=== PATIENT | female | born 1945 | race Caucasian/White ===

== ENCOUNTER → 2016-12-22 | Outpatient (CLI) | payer MEDICARE ==
[~2016-12-22] MED LIST: ALPR0.254 PO; ASPI-630 PO; BYSTOLIC10 MG PO; CHOL2000 PO; CITA40TA5 PO; CRESTOR5 MG PO; ESOM40CA PO; LISI-334 PO; NIFE30TA26 PO; OMEP40CA5 PO; TEMA15CA PO; levothyroxine PO
--- NOTE | 2016-12-22 14:19 | RAD ---
INDICATION:PELVIC PAIN COMPARISON: None. FINDINGS: Focused ultrasound images were obtained of the uterus and adnexa with transabdominal technique. The patient declined transvaginal examination. The bladder is full at the time of exam. The uterus is faintly visualized measuring approximately 57 x 15 x 22 mm but poor evaluation. The ovaries are not well seen. IMPRESSION: Poor visualization of the pelvic structures using transabdominal technique and the patient declined transvaginal examination therefore this is essentially a nondiagnostic exam.
[2016-12-30 09:56] VITALS: BP 114/59
== END | disposition home or self-care (01) ==
LOC: US 08:00
PROVIDERS: ATTEND Nurse Practitioner Family
DX: R10.2 Pelvic and perineal pain (principal)
CPT/HCPCS: 76856

== ENCOUNTER → 2016-12-30 | Day surgery (SDC) | payer MEDICARE ==
[~2016-12-30] MED LIST changes: +HYDROmorphone 2 MG/ML VIAL IV PRN; +IV RINGERS,LACTATED 1000ML 1,000 ML IV SCH; +LIDOCAINE 1% 1 ML SYRINGE. ID PRN; +LIDOCAINE 2% PF Vial for OR 5 ML VIAL. ONE; +MORPHINE SULFATE 2 MG/ML DISP.SYRIN. IV PRN; +ONDANSETRON PF 4 MG/2 ML VIAL. IV PRN; +PROCHLORPERAZINE 10 MG/2 ML VIAL. IV PRN; +PROPOFOL 40 ML IV ONE; +fentaNYL PF VIAL 100 MCG/2 ML VIAL IV PRN
[2016-12-30 09:56] VITALS: BP 114/59
--- NOTE | 2016-12-30 12:50 | PREOP HP ---
DATE OF SERVICE: 12/30/2016 REQUESTING PHYSICIAN: Brandi Hinojosa APRN PRIMARY CARE PHYSICIAN: Brandi Hinojosa APRN REASON FOR PROCEDURE: Colorectal cancer screening. HISTORY OF PRESENT ILLNESS: This is a 71-year-old female who presents today for colorectal cancer screening. She has a daily bowel movement. She has had a prior history of colon polyps and a family history of colorectal cancer in her mother. She has been experiencing left lower quadrant abdominal tenderness. She did have an abdominal sonogram that was unrevealing. She is scheduled for a pelvic sonogram. ALLERGIES: No known drug allergies. MEDICATIONS: 1. Bystolic. 2. Citalopram. 3. Omeprazole. 4. Nifedipine. 5. Baby aspirin. 6. Crestor. 7. Levothyroxine. 8. Alprazolam. PAST MEDICAL HISTORY: 1. Colon polyps. 2. Reflux. 3. High blood pressure. 4. High cholesterol. 5. Eye surgery. 6. D and C. 7. Tonsillectomy. 8. Cataracts. 9. Cysts surgery. 10. . 11. Breast biopsy. FAMILY MEDICAL HISTORY: Significant for colorectal cancer in her mother, father with prostate and bone cancer, uncle with salivary gland cancer, three uncles with lung cancer. SOCIAL HISTORY: She drinks seven or less alcoholic beverages a week. She has a history of smoking less than 1 pack of cigarettes a day and she denies any IV drug abuse. REVIEW OF SYSTEMS: A 13-point review of systems was done. It is positive for leg cramps, swelling of the hands and feet, bleeding gums, easy bruising and joint stiffness, but is otherwise negative. PHYSICAL EXAMINATION: VITAL SIGNS: She is afebrile and her vital signs are stable. GENERAL: She is a well-developed, well-nourished female, in no apparent distress. HEENT: Oropharynx is clear. CARDIOVASCULAR: S1, S2. LUNGS: Clear. ABDOMEN: Normoactive bowel sounds, soft, nontender, nondistended. EXTREMITIES: No edema. NEUROLOGIC: Awake, alert and oriented x 3. ASSESSMENT AND PLAN: 1. Colorectal cancer screening: She has a history of polyps and a family history of colorectal cancer. We will pursue with colonoscopy. The risks and benefits including bleeding, perforation and sedation were explained and she has agreed to proceed. 2. Left lower quadrant abdominal tenderness: She is scheduled for a pelvic sonogram today. We will evaluate at this time with colonoscopy. Thank you for allowing me to participate in the care of this patient. RICH ROACH MD DR: LORRAINE/sommer JOB#: [id number] / [id number] BRANDI Houston APRN
--- NOTE | 2016-12-31 17:01 | PATHOLOGY ---
PATHOLOGY REPORT * * * * * * * * FINAL DIAGNOSIS: Colon biopsy, sigmoid colon: - Congestion and mild acute and chronic inflammation. COMMENT: Sections of the sigmoid colon biopsy reveal a segment of colonic mucosa showing congestion and mild acute and chronic inflammation. The colonic glands appear viable and are regularly distributed and show no crypt architectural distortion. There is no evidence of acute cryptitis. There are no granulomas. The histologic findings are non-specific and may be related to bowel prep. (JPM:mgr; 12/31/2016) REPORT ELECTRONICALLY SIGNED BY: Erik Nielson M.D. DATE/TIME: 12/31/2016 17:00 * * * * * * * * GROSS PATHOLOGY: Received in formalin labeled "Keturah White, sigmoid biopsies," is a segment of mcgowan soft tissue measuring 0.3 cm in maximum dimension. The specimen is submitted entirely in cassette A1. (JPM; 12/30/16) INITIAL CPT CODE(S): A; 75065 Professional services performed by [facility] [place] [address] Technical services performed by [facility] at [address] [place] [address] [address], [place] [address]. SPECIMEN(S) RECEIVED: A.Sigmoid biopsies CLINICAL HISTORY: History of polyps, screening PATIENT: KETURAH WHITE /AGE: 10 1945 (Age: 71) PATIENT #: [id number] ALT CASE #: SPECIMEN COLLECTION DATE: 12/30/2016 SPECIMEN RECEIVED DATE: 12/30/2016 [facility] - [address] [place] [address] - PHONE: [phone] * * * END OF REPORT * * *
== END | disposition home or self-care (01) ==
LOC: ENDOS 07:46
PROVIDERS: ATTEND Internal Medicine Gastroenterology
DX: Z08 Encounter for follow-up examination after completed treatment for malignant neoplasm (principal); Z80.0 Family history of malignant neoplasm of digestive organs; K64.0 First degree hemorrhoids; K63.89 Other specified diseases of intestine; E78.00 Pure hypercholesterolemia, unspecified; I10 Essential (primary) hypertension; K21.9 Gastro-esophageal reflux disease without esophagitis; E03.9 Hypothyroidism, unspecified; Z86.39 Personal history of other endocrine, nutritional and metabolic disease; F41.9 Anxiety disorder, unspecified; F32.9 Major depressive disorder, single episode, unspecified; Z87.39 Personal history of other diseases of the musculoskeletal system and connective tissue; Z72.89 Other problems related to lifestyle
CPT/HCPCS: 45380; 88305; J2001; J2704

== ENCOUNTER → 2016-12-31 | Outpatient (CLI) | payer MEDICARE ==
[2016-12-30 09:56] VITALS: BP 114/59
[~2016-12-31] MED LIST changes: -HYDROmorphone 2 MG/ML VIAL IV PRN; -IV RINGERS,LACTATED 1000ML 1,000 ML IV SCH; -LIDOCAINE 1% 1 ML SYRINGE. ID PRN; -LIDOCAINE 2% PF Vial for OR 5 ML VIAL. ONE; -MORPHINE SULFATE 2 MG/ML DISP.SYRIN. IV PRN; -ONDANSETRON PF 4 MG/2 ML VIAL. IV PRN; -PROCHLORPERAZINE 10 MG/2 ML VIAL. IV PRN; -PROPOFOL 40 ML IV ONE; -fentaNYL PF VIAL 100 MCG/2 ML VIAL IV PRN
--- NOTE | 2016-12-31 15:10 | RAD ---
Transvaginal ultrasound, 12/31/2016: History: Pelvic pain Transvaginal scans were obtained. Note is made that a transabdominal study was performed on 12/22/2016. At that time the patient refused transvaginal scanning. Today's images demonstrate a small uterus measuring 3.7 x 2.8 x 1.9 cm. A small nabothian cyst is seen. The central uterine echo complex is not clearly defined, however, it does not appear to be grossly thickened. The ovaries were not visualized. No adnexal mass is seen. No free fluid is evident in the pelvis. IMPRESSION: Today's limited exam reveals no significant abnormality.
== END | disposition home or self-care (01) ==
LOC: US 14:15
PROVIDERS: ATTEND Nurse Practitioner Family
DX: R10.2 Pelvic and perineal pain (principal)
CPT/HCPCS: 76830

== ENCOUNTER → 2017-01-14 | Outpatient (CLI) | payer MEDICARE ==
[2016-12-30 09:56] VITALS: BP 114/59
--- NOTE | 2017-01-14 12:04 | KCIC ---
MR of the left shoulder Indication: Pain after an injury. Fell 3 days ago. Technique: Standard multiplanar sequences are obtained. Findings: Mild to moderate motion degradation Acromioclavicular joint: Slightly degenerative. No significant undersurface mass effect. Rotator cuff: Mild tendinosis signal. Partial-thickness undersurface tearing of the anterior supraspinatus tendon footprint up to 80 percent deep and 1 cm AP. No through and through full-thickness rupture. Trace fluid in the subdeltoid bursa. Glenohumeral cartilage: No acute defect or advanced DJD. Fluid: Trace joint effusion. Labrum: No apparent tear. Anterosuperior sublabral foramen, normal variant. Incidentally noted thickened cordlike middle glenohumeral ligament. Biceps tendon: Intact Bones: Small nondisplaced fracture at the greater tuberosity is suspected, at its anterior aspect. Soft tissue: Minimal strain or contusion of the lateral deltoid muscle. Impression: 1. Small undersurface tear of the anterior supraspinatus tendon footprint. No full-thickness rotator cuff 2. Suspect small nondisplaced posttraumatic fracture of the anterior greater tuberosity of the proximal humerus. Electronically signed by: Darvin Jones MD (01/14/2017 12:01 PM) [facility]
== END | disposition home or self-care (01) ==
LOC: KCIC MRI 10:36
PROVIDERS: ATTEND Family Medicine
DX: S49.92XD Unspecified injury of left shoulder and upper arm, subsequent encounter (principal); M75.102 Unspecified rotator cuff tear or rupture of left shoulder, not specified as traumatic; X58.XXXD Exposure to other specified factors, subsequent encounter
CPT/HCPCS: 73221

== ENCOUNTER → 2017-01-18 | Outpatient (CLI) | payer OTHER, MEDICARE ==
[2016-12-30 09:56] VITALS: BP 114/59
[~2017-01-18] MED LIST changes: +BUPIVACAINE MPF 0.25% 10 ML VIAL. ONE; +IOHEXOL 180 MG/ML 10 ML VIAL. ONE; +methylPREDNISolone ACETATE 80 MG/ML VIAL. ONE
--- NOTE | 2017-01-18 11:14 | PAIN ---
DATE OF SERVICE: 01/18/2017 PROGRESS NOTE FOR PAIN CLINIC DIAGNOSES: 1. Lumbar radiculopathy. 2. Left shoulder joint pain. HISTORY OF PRESENT ILLNESS: The patient is a 71-year-old female who returns for followup, last seen in June 2015. The patient did very well after lumbar epidural steroid injection; however, returns today reporting that she had fallen at work about 1 week ago landing on to her left shoulder and bilateral elbows. The patient reports she is having significant pain since the fall in to the left shoulder, difficult to abduct the arm, difficulty with activities of daily living, getting dressed, putting her arm through the shirt sleeve, etc. The patient reports her pain as at 8 on a scale of 10 at its worst, it is a 7 on average, is a least of 5 on a scale of 10. The patient reports aching and dull, shooting with radiating pain in to the anterior arm as well in the biceps. The patient did have an MRI scan of the left shoulder showing small undersurface tear of the anterior supraspinatus tendon. No full thickness rotator cuff tear and also suspecting small nondisplaced posttraumatic fracture of the anterior greater tuberosity of the proximal humerus. The patient reports significant pain with any motion of the arm, even reaching forwards, backwards inhibiting her daily activities significantly. The patient reports no loss of motor function, but significant pain, although she is sleeping well at night. She has to lie flat on her back and not lie on her left side. PHYSICAL EXAMINATION: VITAL SIGNS: The patient's blood pressure is 133/71, pulse 56, respirations 18, temperature 97.7 degrees Fahrenheit. Height is 5 feet 5 inches, weighs 193 pounds. GENERAL: The patient is awake, alert, oriented, appropriate, has a very pleasant demeanor. HEENT: Head shows normocephalic, atraumatic. Extraocular movements are intact, symmetrical. The patient wears eye glasses. Oral cavity has mucous membranes moist and pink. Dentition is intact. NECK: Shows anterior throat supple without palpable lymphadenopathy noted. Swallow reflex is symmetrical. CHEST: Shows normal on inspection. Breath sounds are clear to auscultation bilaterally. HEART: Shows S1 and S2 clear. ABDOMEN: Soft, nontender, nondistended. No palpable organomegaly. There is no rebound or guarding demonstrated. BACK: Shows spine grossly in the midline. Normal-appearing cervical lordotic curvature, thoracic kyphotic curvature as well as lumbar lordotic curvature. EXTREMITIES: The patient's upper extremities show deep tendon reflexes 2+ in the biceps and triceps tendons. 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 It is only 2-3 with significant pain reported with biceps flexion on the left side and triceps flexion is slightly less painful, but difficult to do with the arm. The patient shows significant tenderness with even passive motion of abduction on the left side greater than about 30 degrees to 45 degrees with significant pain in the anterior aspect of the shoulder and arm. Right side shows full rotational motion without difficulty. Peripheral pulses are 2+ in radial distribution. No peripheral edema is noted. Options were discussed with the patient. The patient's old chart was reviewed as her current medication regimen and updated. Current review of systems updated today as well. We will proceed with a left shoulder joint intraarticular injection with fluoroscopic guidance. Risks were discussed including, but not limited to bleeding, infection, possibility of epidural hematoma, subsequent neurologic compromise, dural punctures, headaches, spinal cord and/or nerve damage, side effects of steroid medication and poor results regarding pain control. The patient understands and wishes to proceed. The patient will return to the clinic in approximately 2 weeks for followup. She was counseled as to return appointment, activity level and side effects to be aware of. DIAGNOSIS: Left shoulder joint pain. PROCEDURES: Left intraarticular shoulder joint injection with C-arm fluoroscopic guidance under sterile prep and drape using local anesthetic. Medications injected is a total of 2 mL of 0.25% bupivacaine plus 80 mg Depo-Medrol and 2 mL of Isovue for contrast. CONDITION AT DISCHARGE: Stable. The patient tolerated the procedure well, had no complications. ELSIE COTTON MD DR: JOSE/sommer JOB#: [id number] / [id number]
== END | disposition home or self-care (01) ==
LOC: PNCL 08:53
PROVIDERS: ATTEND Anesthesiology
DX: M25.512 Pain in left shoulder (principal); M54.16 Radiculopathy, lumbar region; E78.00 Pure hypercholesterolemia, unspecified; I10 Essential (primary) hypertension; M19.90 Unspecified osteoarthritis, unspecified site; E03.9 Hypothyroidism, unspecified; F41.9 Anxiety disorder, unspecified; F32.9 Major depressive disorder, single episode, unspecified; Z72.89 Other problems related to lifestyle; Z87.39 Personal history of other diseases of the musculoskeletal system and connective tissue; Z88.6 Allergy status to analgesic agent
CPT/HCPCS: 20610; J1040; J3490

== ENCOUNTER → 2017-04-18 | Outpatient (CLI) | payer MEDICARE ==
[2016-12-30 09:56] VITALS: BP 114/59
[~2017-04-18] MED LIST changes: -BUPIVACAINE MPF 0.25% 10 ML VIAL. ONE; -IOHEXOL 180 MG/ML 10 ML VIAL. ONE; -methylPREDNISolone ACETATE 80 MG/ML VIAL. ONE
--- NOTE | 2017-04-18 15:15 | RAD ---
DATE: 04/18/2017 EXAM: DIGITAL SCREEN BILAT W/CAD HISTORY: Routine screening COMPARISON: 04/15/2016 This study was interpreted with the benefit of Computerized Aided Detection (CAD). The breast parenchyma is primarily fatty replaced. Breast parenchyma level density A. FINDINGS: No new or enlarging breast densities are seen. An old breast biopsy marker is again noted inferiorly in the right breast. Scattered benign type calcifications are present. No suspicious microcalcifications have developed. IMPRESSION: Stable mammograms without evidence of malignancy. BI-RADS CATEGORY: 2 BENIGN FINDING(S) RECOMMENDED FOLLOW-UP: 12M 12 MONTH FOLLOW-UP PQRS compliance statement: Patient information was entered into a reminder system with a target due date for the next mammogram. Mammography is a sensitive method for finding small breast cancers, but it does not detect them all and is not a substitute for careful clinical examination. A negative mammogram does not negate a clinically suspicious finding and should not result in delay in biopsying a clinically suspicious abnormality. "Our facility is accredited by the [employer] Mammography Program."
== END | disposition home or self-care (01) ==
LOC: MAMMO 14:44
PROVIDERS: ATTEND Nurse Practitioner Family
DX: Z12.31 Encounter for screening mammogram for malignant neoplasm of breast (principal)
CPT/HCPCS: G0202; 77067

== ENCOUNTER → 2017-06-21 | Outpatient (CLI) | payer MEDICARE | END | disposition home or self-care (01) | LOC: MRI 09:12 | DX: S83.241A Other tear of medial meniscus, current injury, right knee, initial encounter (principal); S83.281A Other tear of lateral meniscus, current injury, right knee, initial encounter; M25.461 Effusion, right knee; M17.11 Unilateral primary osteoarthritis, right knee; M22.41 Chondromalacia patellae, right knee; M71.21 Synovial cyst of popliteal space [Baker], right knee; X58.XXXA Exposure to other specified factors, initial encounter; Y93.89 Activity, other specified; Y92.89 Other specified places as the place of occurrence of the external cause; Y99.8 Other external cause status | CPT/HCPCS: 73721 ==

== ENCOUNTER 2017-07-15 10:30 | Day surgery (SDC) | payer MEDICARE ==
[~2017-07-15 10:30] MED LIST changes: -ALPR0.254 PO; -ASPI-630 PO; -BYSTOLIC10 MG PO; -CHOL2000 PO; -CITA40TA5 PO; -CRESTOR5 MG PO; -ESOM40CA PO; +HYDROmorphone 2 MG/ML VIAL IV; +LIDOCAINE 1% PF 2 ML VIAL. ID; -LISI-334 PO; +MORPHINE SULFATE 2 MG/ML DISP.SYRIN. IV; -NIFE30TA26 PO; -OMEP40CA5 PO; +ONDANSETRON PF 4 MG/2 ML VIAL. IV; +PROCHLORPERAZINE 10 MG/2 ML VIAL. IV; -TEMA15CA PO; +fentaNYL PF VIAL 100 MCG/2 ML VIAL IV; -levothyroxine PO
[2017-07-15] MEDS: IV RINGERS,LACTATED 1000ML 1,000 ML IV ×2 (11:10)
[2017-07-15] MEDS ORDERED: fentaNYL PF VIAL 100 MCG/2 ML VIAL ×2 (11:32)
[2017-07-15] MEDS ORDERED: ePHEDrine PF IN SALINE 50 MG/5 ML DISP.SYRIN IV (12:29)
[2017-07-15] MEDS ORDERED: PROPOFOL 20 ML IV ×4 (12:40→12:49)
[2017-07-15] MEDS ORDERED: ONDANSETRON PF 4 MG/2 ML VIAL. ×2 (12:40)
[2017-07-15] MEDS ORDERED: LIDOCAINE 2% PF Vial for OR 5 ML VIAL. ×2 (12:40)
[2017-07-15] MEDS: BUPIVACAINE MPF 0.5% 30 ML VIAL. ×2 (12:47)
[2017-07-15] MEDS ORDERED: DEXAMETHASONE SOD PHOS 20 MG/5 ML VIAL. ×2 (12:49)
[2017-07-15] MEDS: fentaNYL PF VIAL 100 MCG/2 ML VIAL IV ×4 (13:57→14:10)
[2017-07-15] MEDS: HYDROcodone/APAP 7.5/325MG 1 TAB TABLET PO ×2 (14:37)
== END 2017-07-15 15:15 | disposition home or self-care (01) ==
LOC: SURG 10:30
DX: S83.241A Other tear of medial meniscus, current injury, right knee, initial encounter (principal); S83.281A Other tear of lateral meniscus, current injury, right knee, initial encounter; X58.XXXA Exposure to other specified factors, initial encounter; Y93.89 Activity, other specified; Y92.89 Other specified places as the place of occurrence of the external cause; Y99.8 Other external cause status; E78.00 Pure hypercholesterolemia, unspecified; I10 Essential (primary) hypertension; E66.9 Obesity, unspecified; Z68.30 Body mass index [BMI] 30.0-30.9, adult; E03.9 Hypothyroidism, unspecified; F41.9 Anxiety disorder, unspecified; F32.9 Major depressive disorder, single episode, unspecified; Z72.89 Other problems related to lifestyle; Z98.41 Cataract extraction status, right eye; Z98.42 Cataract extraction status, left eye; Z87.39 Personal history of other diseases of the musculoskeletal system and connective tissue
CPT/HCPCS: 20680; J0690; J1100; J2405; J2704; J3010; J3490

== ENCOUNTER → 2017-12-19 | Outpatient (CLI) | payer MEDICARE | END | disposition home or self-care (01) | LOC: ECHO 08:42 | DX: I08.8 Other rheumatic multiple valve diseases (principal); I27.20 Pulmonary hypertension, unspecified; I10 Essential (primary) hypertension; E78.00 Pure hypercholesterolemia, unspecified; E78.5 Hyperlipidemia, unspecified; E03.9 Hypothyroidism, unspecified; E66.9 Obesity, unspecified | CPT/HCPCS: 93306 ==

== ENCOUNTER → 2018-01-16 | Outpatient (CLI) | payer MEDICARE ==
[2017-07-15 14:46] VITALS: BP 143/56
[~2018-01-16] MED LIST changes: +ALPR0.254 PO; +ASPI-630 PO; +BYSTOLIC10 MG PO; +CHOL2000 PO; +CITA20TA6 PO; +CITA40TA5 PO; +CRESTOR5 MG PO; +ESOM40CA PO; +HYDR-2762 PO; +HYDR-965 PO; -HYDROmorphone 2 MG/ML VIAL IV; -LIDOCAINE 1% PF 2 ML VIAL. ID; +LISI-334 PO; +MAGN400C PO; -MORPHINE SULFATE 2 MG/ML DISP.SYRIN. IV; +NIFE30TA2 PO; +NIFE30TA26 PO; +OMEP40CA5 PO; -ONDANSETRON PF 4 MG/2 ML VIAL. IV; +PANT20TA2 PO; +POTA20TA82 PO; -PROCHLORPERAZINE 10 MG/2 ML VIAL. IV; +TEMA15CA PO; +WARF2TAB PO; +[UNRECOGNIZED DRUG - OTHER]; -fentaNYL PF VIAL 100 MCG/2 ML VIAL IV; +levothyroxine PO
[2018-01-16 11:22] LABS: BASO # 0.1 x10^3/uL (0.0-0.2); BASO % 1 % (0-3); EOS # 0.2 x10^3/uL (0.0-0.7); EOS % 3 % (0-3); HEMATOCRIT 37.5 % (36.0-47.0); HEMOGLOBIN 12.6 g/dL (12.0-15.5); LYMPH # 2.9 x10^3/uL (1.0-4.8); LYMPH % 42 % (24-48); MEAN CORPUSCULAR HEMOGLOBIN 31 pg (25-35); MEAN CORPUSCULAR HGB CONC 34 g/dL (31-37); MEAN CORPUSCULAR VOLUME 91 fL (79-100); MONO # 0.6 x10^3/uL (0.0-1.1); MONO % 8 % (0-9); NEUT # 3.2 x10^3uL (1.8-7.7); NEUT % 46 % (31-73); PLATELET COUNT 318 x10^3/uL (140-400); RED BLOOD COUNT 4.12 x10^6/uL (3.50-5.40); RED CELL DISTRIBUTION WIDTH 12.8 % (11.5-14.5)
--- NOTE | 2018-01-16 11:22 | EKG ---
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
[2018-01-16 11:29] LABS: PROTHROMBIN TIME PATIENT 12.4 SEC (11.7-14.0)
[2018-01-16 11:34] LABS: ALBUMIN 3.9 g/dL (3.4-5.0); CALCIUM 9.7 mg/dL (8.5-10.1); CREATININE 1.3 mg/dL (0.6-1.0); GFR 40.4; POTASSIUM 4.1 mmol/L (3.5-5.1)
[2018-01-16 12:50] LABS: BILIRUBIN,URINE SMALL (NEG); CLARITY,URINE CLEAR; COLOR,URINE YELLOW; NITRITE,URINE NEGATIVE (NEG); PH,URINE 5.5; PROTEIN,URINE NEGATIVE (NEG-TRACE); UROBILINOGEN,URINE 0.2 mg/dL (0.2 mg/dL)
[2018-01-16 13:27] LABS: BACTERIA,URINE 0 /HPF (0-FEW); HYALINE CASTS, URINE OCCASIONAL /HPF; RBC,URINE 0 /HPF (0-2); SQUAMOUS EPITHELIAL CELL,UR FEW /LPF
--- NOTE | 2018-01-16 16:06 | RAD ---
EXAM: PA and lateral views of the chest DATE: 01/16/2018 1:06 PM INDICATION: PRE OP FOR KNEE REPLACEMENT 01/24/18 COMPARISON: No Prior FINDINGS: The heart is not enlarged. Mediastinal and hilar contours are normal. No focal parenchymal airspace opacity. No pleural effusion or pneumothorax. Mild eventration of the right hemidiaphragm. IMPRESSION: 1. No radiographic evidence for acute cardiopulmonary process. Electronically signed by: Salo Zepeda MD (01/16/2018 4:02 PM) [facility]
== END | disposition home or self-care (01) ==
LOC: LAB 10:35
PROVIDERS: ATTEND Orthopaedic Surgery
DX: Z01.818 Encounter for other preprocedural examination (principal); M17.11 Unilateral primary osteoarthritis, right knee; I10 Essential (primary) hypertension; E03.9 Hypothyroidism, unspecified; E78.00 Pure hypercholesterolemia, unspecified; E78.5 Hyperlipidemia, unspecified; Z86.39 Personal history of other endocrine, nutritional and metabolic disease; Z87.39 Personal history of other diseases of the musculoskeletal system and connective tissue; Z68.30 Body mass index [BMI] 30.0-30.9, adult; Z88.6 Allergy status to analgesic agent
CPT/HCPCS: 36415; 71046; 80048; 81001; 82040; 85025; 85610; 85651; 85730; 87086; 87641; 93005

== ENCOUNTER 2018-01-24 10:57 | Inpatient (IN) | payer MEDICARE ==
[~2018-01-24] VITALS: Ht 165.1 cm; Wt 85.3 kg
[~2018-01-24 10:57] MED LIST changes: +DEXAMETHASONE SOD PHOS 20 MG/5 ML VIAL. ONE; -HYDR-2762 PO; +HYDROcodone/APAP 7.5/325MG 1 TAB TABLET PO PRN; +HYDROmorphone 2 MG/ML VIAL IV PRN; +IV RINGERS,LACTATED 1000ML 1,000 ML IV SCH; +LIDOCAINE 1% PF 2 ML VIAL. ID PRN; +LIDOCAINE 2% PF Vial for OR 5 ML VIAL. ONE; +MORPHINE SULFATE 2 MG/ML VIAL. IV PRN; +MORPHINE SULFATE 5 MG, KETOROLAC 30MG VIAL 30 MG, ROPIVacaine 0.5% PF 60 ML, EPINEPHrin... INT ART ONE; +ONDANSETRON PF 4 MG/2 ML VIAL. IV PRN; +ONDANSETRON PF 4 MG/2 ML VIAL. ONE; +PROCHLORPERAZINE 10 MG/2 ML VIAL. IV PRN; +PROPOFOL 20 ML IV ONE; +ROCURONIUM 50 MG/5 ML VIAL. ONE; +TRANEXAMIC ACID 1,000 MG in IV NS 50ML -- 1ST BAG INJ ONE; +TRANEXAMIC ACID 1,000 MG in IV NS 50ML -- 2ND BAG INJ ONE; -WARF2TAB PO; +fentaNYL PF VIAL 100 MCG/2 ML VIAL IV PRN; +fentaNYL PF VIAL 100 MCG/2 ML VIAL ONE
[2018-01-24] MEDS ORDERED: CELECOXIB 100 MG CAPSULE. ONE (11:39)
[2018-01-24] MEDS ORDERED: LIDOCAINE 1% PF 30 ML VIAL. ONE (11:40)
[2018-01-24 12:03] LABS: PROTHROMBIN TIME PATIENT 12.5 SEC (11.7-14.0)
[2018-01-24] MEDS ORDERED: MIDAZOLAM HCL/PF 2 MG/2 ML VIAL. ONE (12:14)
[2018-01-24] MEDS ORDERED: FAMOTIDINE 20 MG/2 ML VIAL ONE (12:14)
[2018-01-24] MEDS ORDERED: fentaNYL PF VIAL 100 MCG/2 ML VIAL ONE ×2 (12:16→14:42)
[2018-01-24] MEDS ORDERED: ePHEDrine PF IN SALINE 50 MG/5 ML DISP.SYRIN IV ONE (12:18)
[2018-01-24] MEDS ORDERED: GLYCOPYRROLATE 1 MG/5 ML VIAL. ONE (13:04)
[2018-01-24] MEDS ORDERED: NEOSTIGMINE METHYLSULFATE 5 MG/5 ML SYRINGE. ONE (13:21)
[2018-01-24] MEDS ORDERED: fentaNYL PF VIAL 100 MCG/2 ML VIAL IV PRN ×2 (14:45)
[2018-01-24] MEDS ORDERED: traMADol 50 MG TABLET PO PRN ×2 (14:45)
[2018-01-24] MEDS ORDERED: HYDROcodone/APAP 10/325 1 TAB TABLET PO PRN (14:45)
[2018-01-24] MEDS ORDERED: ZOLPIDEM 5 MG TABLET. PO PRN (14:45)
[2018-01-24] MEDS ORDERED: oxyCODONE/APAP 5/325 1 TAB TABLET PO PRN (14:45)
[2018-01-24] MEDS ORDERED: ALPRAZolam 0.25 MG TABLET PO PRN (14:45)
[2018-01-24] MEDS ORDERED: diphenhydrAMINE 50 MG/ML VIAL IV PRN (14:45)
[2018-01-24] MEDS ORDERED: ACETAMINOPHEN 325 MG TABLET. PO PRN (14:45)
[2018-01-24] MEDS ORDERED: oxyCODONE/APAP 7.5/325 1 TAB TABLET PO PRN (14:45)
[2018-01-24] MEDS ORDERED: DEXTROSE 50% 25 GM / 50ML DISP.SYRIN. IV PRN (14:45)
[2018-01-24] MEDS ORDERED: PROCHLORPERAZINE 10 MG/2 ML VIAL. IV PRN (14:45)
[2018-01-24] MEDS ORDERED: MORPHINE SULFATE 4 MG/ML VIAL. IV PRN (14:45)
[2018-01-24] MEDS ORDERED: 0.9 % SODIUM CHLORIDE 10 ML DISP.SYRIN. IV PRN (14:45)
[2018-01-24] MEDS ORDERED: MORPHINE SULFATE 2 MG/ML VIAL. IV PRN (14:45)
[2018-01-24] MEDS: fentaNYL PF VIAL 100 MCG/2 ML VIAL IV PRN ×2 (15:07→15:43)
--- NOTE | 2018-01-24 15:11 | PDOC4 ---
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 Estimated blood loss: 200 mL Complications: None Operative indications: Keturah underwent previous knee arthroscopy and subsequent injections which provided her inadequate relief from her ongoing knee pain and instability. Likewise bracing and activity modification were inadequate to get her back to acceptable levels of symptoms and pain. We had gone over risks benefits postoperative course of operative treatment options of a knee arthroplasty. We had previously discussed the possibility of a unicondylar arthroplasty but due to her lateral compartment involvement and valgus instability I think total knee would be much more reliable for her we talked about the possibility of continued pain nerve or blood vessel damage medical or other anesthetic complications among others all her questions were answered consent was obtained and she agrees to proceed with operative evaluation and treatment. Operative text: Patient was identified procedure verified patient placed in the supine position on the operating table. After adequate amounts of general anesthesia were administered a thigh tourniquet was placed in the right lower extremity was prepped and draped in standard sterile fashion. After timeout was performed patient procedure identified and verified a midline incision was made with a medial parapatellar approach fat pad was excised patella was everted she was noted to have significant synovitis in addition to the degenerative changes and the synovium was treated with the aqua Mantis device to coagulate the readily bleeding areas. It medullary femoral cutting guide was used to the standard setting distal cut was made in the femur sized at a size 4 and chamfer cuts were made with the cutting block. Posterior cruciate ligament was retained the tibial cut was made with extramedullary cutting jig and flexion extension gaps were checked and found to be excellent with good medial lateral stability and correction of her alignment. Tibial guide size 4 was then pinned into place and trialed with a cruciate retaining size 4 journey 2 trial which provided excellent range of motion stability ligament balance and correction of her alignment. Tibia was then drilled and broached distal femoral lugs were drilled as well patella was resurfaced with a biconvex 26 mm implant medialized lateral bone was removed to prevent any impingement and trial components were then removed thorough irrigation carried out normal saline solution and the aqua Mantis device was used to coagulate the intracapsular bleeding completely and the following components were cemented in place with polymethylmethacrylate cement a size 4 journey nonporous tibial baseplate a size 4 cruciate retaining journey 2 cobalt-chromium femoral component a 26 mm biconvex journey patella and a 9 mm spacer was placed temporarily excess cement was curetted away when cement was dry thorough irrigation again carried out normal saline solution joint was checked for loose bodies or excess cement and a journey to polyethylene articular insert 9 mm corresponding to the size 4 tibial and femoral components was some locked in place Hemovac drain and pain catheter were placed pain catheter mixture was injected throughout the joint capsule aqua mantis was used to further cauterize the synovial areas closure of the retinaculum carried out with #2 Ethibond suture in interrupted fashion #1 PDS strata fix suture in a running fashion subcutaneous closure with buried Vicryl suture skin closure with subcuticular strata fix Monocryl cassandra dressing was applied. Attention was then turned to the right hand which was prepped with an arm tourniquet in standard sterile fashion. After timeout was again performed the right upper extremity was exsanguinated by Esmarch bandage tourniquet inflated to 250 mmHg transverse incision was made at the distal palmar crease dissection carried out down to the flexor tendon sheath of the long finger and the A1 rogelio was divided as was the remaining proximal tendon sheath there was significant return of fluid and triggering was completely eliminated. Closure accomplished with 4-0 nylon in a vertical mattress fashion sterile dressings were applied fingers were noted be warm pink following deflation of tourniquet and patient was returned in stable condition to the recovery room having tolerated procedure well KEVIN HARRISON MD Jan 24, 2018 15:11
--- NOTE | 2018-01-24 15:18 | RAD ---
EXAM: Right knee, 3 views. HISTORY: Arthroplasty. COMPARISON: None. FINDINGS: 3 views of the right knee are obtained. There is a right knee arthroplasty in expected position. There is surrounding soft tissue gas and a surgical drain due to recent surgery. IMPRESSION: Right knee arthroplasty in expected position. Electronically signed by: Vera Little MD (01/24/2018 3:15 PM) [id number]
[2018-01-24] MEDS ORDERED: WARFARIN 7.5 MG TABLET. PO ONE (16:00)
[2018-01-24 16:35] VITALS: BP 113/66
[2018-01-24 17:00] VITALS: BP 115/71
[2018-01-24] MEDS: FERROUS SULFATE 325 MG TABLET. PO SCH (17:00)
[2018-01-24 17:30] VITALS: BP 114/80
[2018-01-24 18:00] VITALS: BP 136/78
[2018-01-24 18:30] VITALS: BP 108/71
[2018-01-24] MEDS: KETOROLAC 30MG VIAL 30 MG, BUPIVACAINE MPF 0.25% 20 ML, EPINEPHrine 0.5 MG in TOTAL VOL... INT ART SCH (18:43)
[2018-01-24] MEDS: CELECOXIB 100 MG CAPSULE. PO SCH (21:14)
[2018-01-24] MEDS: IV DEXTROSE 5 %-0.45 % NACL 1,000 ML IV SCH (21:15)
[2018-01-24] MEDS: POTASSIUM CHLORIDE 10 MEQ TABLET.ER. PO SCH (21:15)
[2018-01-24] MEDS: HYDROcodone/APAP 7.5/325MG 1 TAB TABLET PO PRN (21:20)
[2018-01-24 23:00] VITALS: BP 112/55
[2018-01-25 03:13] VITALS: BP 105/66
[2018-01-25 05:18] LABS: HEMATOCRIT 27.6 % (36.0-47.0); HEMOGLOBIN 9.5 g/dL (12.0-15.5); RED BLOOD COUNT 3.03 x10^6/uL (3.50-5.40); RED CELL DISTRIBUTION WIDTH 13.2 % (11.5-14.5); WHITE BLOOD COUNT 9.2 x10^3/uL (4.0-11.0)
[2018-01-25 05:22] LABS: PROTHROMBIN TIME PATIENT 13.6 SEC (11.7-14.0)
[2018-01-25] MEDS: KETOROLAC 30MG VIAL 30 MG, BUPIVACAINE MPF 0.25% 20 ML, EPINEPHrine 0.5 MG in TOTAL VOL... INT ART SCH (05:45)
[2018-01-25] MEDS ORDERED: MAGNESIUM HYDROXIDE 2,400 MG/30 ML ORAL.SUSP. PO PRN (06:00)
[2018-01-25] MEDS: LEVOTHYROXINE 25 MCG TABLET. PO SCH (06:40)
[2018-01-25] MEDS: PANTOPRAZOLE 40 MG TABLET.DR. PO SCH (06:40)
[2018-01-25 07:11] VITALS: BP 99/58
--- NOTE | 2018-01-25 07:46 | PDOC ---
ORTHO PROGRESS NOTES Subjective Patient doing well sitting up in chair at bedside with no major complaints. Post-op Day: 1 Procedure R TKA and R long finger trigger finger release. Vitals Vital Signs Date Time Temp Pulse Resp B/P (MAP) Pulse Ox O2 Delivery O2 Flow Rate FiO2 01/25/18 07:11 98.1 78 20 99/58 (72) 95 Room Air 98.1 01/25/18 03:13 2.0 Labs Laboratory Tests Test 01/24/18 11:40 01/25/18 03:25 Prothrombin Time 12.5 SEC (11.7-14.0) 13.6 SEC (11.7-14.0) Prothromb Time International Ratio 1.0 (0.8-1.1) 1.1 (0.8-1.1) Activated Partial Thromboplast Time 26 SEC (24-38) White Blood Count 9.2 x10^3/uL (4.0-11.0) Red Blood Count 3.03 x10^6/uL (3.50-5.40) Hemoglobin 9.5 g/dL (12.0-15.5) Hematocrit 27.6 % (36.0-47.0) Mean Corpuscular Volume 91 fL (79-100) Mean Corpuscular Hemoglobin 32 pg (25-35) Mean Corpuscular Hemoglobin Concent 35 g/dL (31-37) Red Cell Distribution Width 13.2 % (11.5-14.5) Platelet Count 229 x10^3/uL (140-400) Laboratory Tests Test 01/24/18 11:40 01/25/18 03:25 Prothrombin Time 12.5 SEC (11.7-14.0) 13.6 SEC (11.7-14.0) Prothromb Time International Ratio 1.0 (0.8-1.1) 1.1 (0.8-1.1) Activated Partial Thromboplast Time 26 SEC (24-38) White Blood Count 9.2 x10^3/uL (4.0-11.0) Red Blood Count 3.03 x10^6/uL (3.50-5.40) Hemoglobin 9.5 g/dL (12.0-15.5) Hematocrit 27.6 % (36.0-47.0) Mean Corpuscular Volume 91 fL (79-100) Mean Corpuscular Hemoglobin 32 pg (25-35) Mean Corpuscular Hemoglobin Concent 35 g/dL (31-37) Red Cell Distribution Width 13.2 % (11.5-14.5) Platelet Count 229 x10^3/uL (140-400) Assessment and Plan Patient dressing dry and intact on knee and right hand. PT per protocol pain control PRABHU GORDON APRN Jan 25, 2018 07:46
[2018-01-25 08:30] VITALS: BP 102/59
[2018-01-25] MEDS: ASPIRIN CHEWABLE 81 MG TABLET. PO SCH (08:38)
[2018-01-25] MEDS: FERROUS SULFATE 325 MG TABLET. PO SCH ×2 (08:38→17:09)
[2018-01-25] MEDS: HYDROcodone/APAP 7.5/325MG 1 TAB TABLET PO PRN ×3 (08:38→20:41)
[2018-01-25] MEDS: MULTIVITAMIN with MINERAL TABLET. PO SCH (08:38)
[2018-01-25] MEDS: SENNOSIDES/DOCUSATE 8.6/50MG TABLET. PO SCH (08:38)
[2018-01-25] MEDS: CITALOPRAM 20 MG TABLET. PO SCH (08:38)
[2018-01-25] MEDS: CELECOXIB 100 MG CAPSULE. PO SCH ×2 (08:38→20:41)
[2018-01-25] MEDS: METOPROLOL TART IMMED RELEASE 50 MG TABLET. PO SCH ×2 (09:00→20:45)
[2018-01-25] MEDS: IV DEXTROSE 5 %-0.45 % NACL 1,000 ML IV SCH ×3 (10:39→20:39)
[2018-01-25 11:25] VITALS: BP 95/57
[2018-01-25] MEDS ORDERED: WARFARIN 5 MG TABLET. PO ONE (16:00)
[2018-01-25] MEDS ORDERED: BISACODYL 10 MG SUPP.RECT. PR PRN (16:00)
[2018-01-25 18:33] VITALS: BP 106/64
[2018-01-25] MEDS: POTASSIUM CHLORIDE 10 MEQ TABLET.ER. PO SCH (20:41)
[2018-01-25 23:00] VITALS: BP 100/53
[2018-01-26 04:34] LABS: HEMATOCRIT 24.9 % (36.0-47.0); HEMOGLOBIN 8.6 g/dL (12.0-15.5)
[2018-01-26 05:01] LABS: PROTHROMBIN TIME PATIENT 19.6 SEC (11.7-14.0)
[2018-01-26] MEDS: LEVOTHYROXINE 25 MCG TABLET. PO SCH (05:04)
[2018-01-26] MEDS: HYDROcodone/APAP 7.5/325MG 1 TAB TABLET PO PRN ×4 (05:04→21:17)
[2018-01-26] MEDS: PANTOPRAZOLE 40 MG TABLET.DR. PO SCH (05:04)
[2018-01-26 06:35] VITALS: BP 97/61
--- NOTE | 2018-01-26 07:38 | PDOC ---
PROGRESS NOTES Subjective Subjective Problems overnight: Yesterday went great with physical therapy getting up and around very well much more sore this morning, some muscle spasm Objective Vital Signs Vital Signs Date Time Temp Pulse Resp B/P (MAP) Pulse Ox O2 Delivery O2 Flow Rate FiO2 01/26/18 06:35 98.9 72 20 97/61 (73) 98 2.0 98.9 01/26/18 05:04 Room Air Physical Exam Jimmy dressing clean dry intact, trigger finger site dressing clean dry intact full finger range of motion good knee stability alignment distal neurovascular status intact Labs Laboratory Tests Test 01/24/18 11:40 01/25/18 03:25 01/26/18 04:20 Prothrombin Time 12.5 SEC (11.7-14.0) 13.6 SEC (11.7-14.0) 19.6 SEC (11.7-14.0) Prothromb Time International Ratio 1.0 (0.8-1.1) 1.1 (0.8-1.1) 1.7 (0.8-1.1) Activated Partial Thromboplast Time 26 SEC (24-38) White Blood Count 9.2 x10^3/uL (4.0-11.0) Red Blood Count 3.03 x10^6/uL (3.50-5.40) Hemoglobin 9.5 g/dL (12.0-15.5) 8.6 g/dL (12.0-15.5) Hematocrit 27.6 % (36.0-47.0) 24.9 % (36.0-47.0) Mean Corpuscular Volume 91 fL (79-100) Mean Corpuscular Hemoglobin 32 pg (25-35) Mean Corpuscular Hemoglobin Concent 35 g/dL (31-37) 35 g/dL (31-37) Red Cell Distribution Width 13.2 % (11.5-14.5) Platelet Count 229 x10^3/uL (140-400) Laboratory Tests Test 01/26/18 04:20 Hemoglobin 8.6 g/dL (12.0-15.5) Hematocrit 24.9 % (36.0-47.0) Mean Corpuscular Hemoglobin Concent 35 g/dL (31-37) Prothrombin Time 19.6 SEC (11.7-14.0) Prothromb Time International Ratio 1.7 (0.8-1.1) Assessment Assessment POD# [2], S/P [right total knee arthroplasty, trigger finger release] Problems: Plan Plan of Care Continue mobilize with physical therapy Home with home health on discharge KEVIN HARRISON MD Jan 26, 2018 07:38
[2018-01-26] MEDS: SENNOSIDES/DOCUSATE 8.6/50MG TABLET. PO SCH (08:29)
[2018-01-26] MEDS: MULTIVITAMIN with MINERAL TABLET. PO SCH (08:29)
[2018-01-26 08:30] VITALS: BP 93/53
[2018-01-26] MEDS: FERROUS SULFATE 325 MG TABLET. PO SCH ×2 (08:30→16:45)
[2018-01-26] MEDS: CELECOXIB 100 MG CAPSULE. PO SCH ×2 (08:30→21:16)
[2018-01-26] MEDS: ASPIRIN CHEWABLE 81 MG TABLET. PO SCH (08:30)
[2018-01-26] MEDS: CITALOPRAM 20 MG TABLET. PO SCH (08:30)
[2018-01-26] MEDS: METOPROLOL TART IMMED RELEASE 50 MG TABLET. PO SCH ×2 (12:55→21:00)
[2018-01-26] MEDS: CALCIUM CARBONATE 500 MG TAB.CHEW PO PRN ×2 (15:20→17:56)
[2018-01-26] MEDS ORDERED: WARFARIN 2 MG TABLET. PO ONE (16:00)
[2018-01-26 18:05] VITALS: BP 110/66
[2018-01-26] MEDS: POLYETHYLENE GLYCOL 3350 17 GM PACKET. PO SCH (20:09)
[2018-01-26] MEDS: POTASSIUM CHLORIDE 10 MEQ TABLET.ER. PO SCH (21:17)
[2018-01-27 04:23] LABS: HEMATOCRIT 24.2 % (36.0-47.0); HEMOGLOBIN 8.4 g/dL (12.0-15.5)
[2018-01-27 04:27] LABS: PROTHROMBIN TIME PATIENT 22.1 SEC (11.7-14.0)
[2018-01-27] MEDS: PANTOPRAZOLE 40 MG TABLET.DR. PO SCH (05:50)
[2018-01-27] MEDS: LEVOTHYROXINE 25 MCG TABLET. PO SCH (05:50)
[2018-01-27 06:00] VITALS: BP 108/55
[2018-01-27] MEDS: CELECOXIB 100 MG CAPSULE. PO SCH (08:11)
[2018-01-27] MEDS: FERROUS SULFATE 325 MG TABLET. PO SCH (08:11)
[2018-01-27] MEDS: CITALOPRAM 20 MG TABLET. PO SCH (08:11)
[2018-01-27] MEDS: MULTIVITAMIN with MINERAL TABLET. PO SCH (08:11)
[2018-01-27] MEDS: SENNOSIDES/DOCUSATE 8.6/50MG TABLET. PO SCH (08:11)
[2018-01-27] MEDS: POLYETHYLENE GLYCOL 3350 17 GM PACKET. PO SCH (08:12)
[2018-01-27] MEDS: ASPIRIN CHEWABLE 81 MG TABLET. PO SCH (08:12)
[2018-01-27] MEDS: HYDROcodone/APAP 7.5/325MG 1 TAB TABLET PO PRN (08:12)
[2018-01-27] MEDS: METOPROLOL TART IMMED RELEASE 50 MG TABLET. PO SCH (09:00)
[2018-01-27 12:23] VITALS: BP 103/65
[2018-01-27] MEDS ORDERED: WARFARIN 2 MG TABLET. PO SCH (14:00)
[2018-01-27] MEDS ORDERED: WARF2TAB PO (14:15)
[2018-01-27] MEDS ORDERED: HYDR-2762 PO (14:16)
--- NOTE | 2018-01-28 21:32 | DS ---
DATE OF DISCHARGE: 01/27/2018 PRINCIPAL DIAGNOSIS: Degenerative joint disease and instability. PROCEDURE: Total knee arthroplasty. DISPOSITION: Home with home health. DISPOSITION MEDICATIONS: Victor [birth year] one p.o. q. 6 hours p.r.n. pain, Coumadin as directed by Anticoagulation Clinic. Resume preoperative medications. DISCHARGE INSTRUCTIONS: Activities: Weightbearing as tolerated, standard total knee precautions. Maintain ERENDIRA drain. Report any redness, excessive drainage, fever or chills. Followup in two weeks. BRIEF DESCRIPTION OF HOSPITAL COURSE: The patient underwent uncomplicated total knee arthroplasty. She was doing extremely well on postoperative day number one, was a bit more sore the following three days, but reasonably well controlled on pain medication. Remained medically stable, progressed with physical therapy quite well and was discharged home in stable condition. KEVIN HARRISON MD DR: CARLOS ALBERTO/sommer JOB#: [id number] / [id number]
--- NOTE | 2018-01-30 10:07 | PATHOLOGY ---
[facility] Accession Number: [id number] . 01 Material submitted: . BONE RIGHT KNEE . 01 Clinical history: . Osteoarthritis right knee . 02 Diagnosis: Segments of bone and soft tissue, right total knee arthroplasty: - Degenerative arthritis. (JPM:yo; 01/28/2018) QMS/01/28/2018 . 02 Electronically signed: . Erik Nielson MD, Pathologist NPI- [id number] . 01 Gross description: . The specimen is received in formalin, labeled "Keturah White and bone, right knee", are multiple segments of mcgowan-yellow bone with recognizable tibia plateau, meniscus, patella and attached lopez-white fibrous soft tissue measuring 10.5 x 9.0 x 2.0 in aggregate. The articular surface shows eburnation with the remaining mcgowan-yellow and smooth. Peripheral osteophytes are present. Emd Teacher sections are submitted in A1 after decalcification. ([facility]; 01/25/2018) [facility] . 02 Pathologist provided ICD-10: M17.11 . 02 CPT . 217063, 845310 Performed at: [facility] [address], [place] [id number] MD Tommy De Guzman MD Phone: [phone] Performed at: 02 [facility] [address] [place], [place] [id number] MD Erik Nielson MD Phone: [phone]
== END 2018-01-27 15:15 | disposition home health service (06) | DRG 470 ==
LOC: OPSVCIP 10:57 → 4 SOUTHEST 16:35
PROVIDERS: ADMIT Orthopaedic Surgery; ATTEND Orthopaedic Surgery
PROC: 0SRC0J9 Replacement of Right Knee Joint with Synthetic Substitute, Cemented, Open Approach (ICD-10-PCS; principal; 2018-01-24 12:15)
PROC: 0LN70ZZ Release Right Hand Tendon, Open Approach (ICD-10-PCS; 2018-01-24 12:15)
DX: M17.11 Unilateral primary osteoarthritis, right knee (principal); M65.30 Trigger finger, unspecified finger
CPT/HCPCS: 36415; 73560; 85014; 85018; 85027; 85610; 85730; 86850; 86900; 86901; 88305; 88311; A7015; C1713; J0171; J0690; J1100; J1885; J2001; J2250; J2270; J2405; J2704; J2710; J2795; J3010; J3490; J7030; J7120; S0028; 97116; 97150; 97530; 97535; C1769

== ENCOUNTER → 2018-04-25 | Outpatient (CLI) | payer MEDICARE ==
[~2018-04-25] MED LIST changes: -DEXAMETHASONE SOD PHOS 20 MG/5 ML VIAL. ONE; +HYDR-2762 PO; +HYDR-3165 PO; -HYDR-965 PO; -HYDROcodone/APAP 7.5/325MG 1 TAB TABLET PO PRN; -HYDROmorphone 2 MG/ML VIAL IV PRN; -IV RINGERS,LACTATED 1000ML 1,000 ML IV SCH; -LIDOCAINE 1% PF 2 ML VIAL. ID PRN; -LIDOCAINE 2% PF Vial for OR 5 ML VIAL. ONE; -MORPHINE SULFATE 2 MG/ML VIAL. IV PRN; -MORPHINE SULFATE 5 MG, KETOROLAC 30MG VIAL 30 MG, ROPIVacaine 0.5% PF 60 ML, EPINEPHrin... INT ART ONE; -ONDANSETRON PF 4 MG/2 ML VIAL. IV PRN; -ONDANSETRON PF 4 MG/2 ML VIAL. ONE; -PROCHLORPERAZINE 10 MG/2 ML VIAL. IV PRN; -PROPOFOL 20 ML IV ONE; -ROCURONIUM 50 MG/5 ML VIAL. ONE; -TRANEXAMIC ACID 1,000 MG in IV NS 50ML -- 1ST BAG INJ ONE; -TRANEXAMIC ACID 1,000 MG in IV NS 50ML -- 2ND BAG INJ ONE; +WARF2TAB PO; -fentaNYL PF VIAL 100 MCG/2 ML VIAL IV PRN; -fentaNYL PF VIAL 100 MCG/2 ML VIAL ONE
--- NOTE | 2018-04-25 15:29 | RAD ---
DATE: 04/25/2018 EXAM: MAMMO CHELI SCREENING BILATERAL HISTORY: Benign right breast biopsy in 2013 COMPARISON: 04/08/2015, 04/15/2016, 04/18/2017 screen mammographic exams This study was interpreted with the benefit of Computerized Aided Detection (CAD). Breast Density: FATTY The breast parenchyma is primarily fatty replaced. Breast parenchyma level density A. FINDINGS: Scattered benign calcifications are present. Right axillary lymph node is benign in appearance. No new masses or distortion. Biopsy clip marker involves the right anterior central breast. IMPRESSION: Benign findings. BI-RADS CATEGORY: 2 BENIGN FINDING(S) RECOMMENDED FOLLOW-UP: 12M 12 MONTH FOLLOW-UP PQRS compliance statement: Patient information was entered into a reminder system with a target due date in one year for the next mammogram. Mammography is a sensitive method for finding small breast cancers, but it does not detect them all and is not a substitute for careful clinical examination. A negative mammogram does not negate a clinically suspicious finding and should not result in delay in biopsying a clinically suspicious abnormality. "Our facility is accredited by the [employer] Mammography Program."
== END | disposition home or self-care (01) ==
LOC: MAMMO 13:17
PROVIDERS: ATTEND Nurse Practitioner Family
DX: Z12.31 Encounter for screening mammogram for malignant neoplasm of breast (principal)
CPT/HCPCS: 77063; 77067

== ENCOUNTER → 2018-07-11 | Outpatient (CLI) | payer MEDICARE ==
[~2018-07-11] MED LIST changes: -HYDR-2762 PO; +HYDR-2765 PO; +REGADENOSON 0.4 MG/5 ML DISP.SYRIN. IV ONE
--- NOTE | 2018-07-12 10:32 | RAD ---
MR#: [id number] Date of Study: 07/11/2018 Ordering Physician: FLAKITA BREWSTER, Referring Physician: DORCAS PERKINS Tech: SUSIE Renae ARRT (R) (N) APPROVED REPORT Test Type: Pharmacological Stress Nurse/Tech: Selena Cross RN/Genevieve Bowman RN Test Indications: SMYTH Cardiac History: Hypertension, Family history, High cholesterol Medications: See Electronic Medical Record Medical History: See Electronic Medical Record Resting ECG: SR Resting Heart Rate: 64 bpm Resting Blood Pressure: 131/65mmHg Pretest Chest Pain: No chest pain Nurse/Tech Notes S1S2, Lungs CTA Consent: The procedure was explained to the patient in lay terms. Informed consent was witnessed. Stewart eout was entered into [employer]. History and Stress Test performed by RT Gene (Natasha) (N) Pharm. Details Pharmacologic stress testing was performed using 0.4mg per 5ml of regadenoson given intravenously ove r 7-10 seconds. Stress Symptoms Dyspnea POST EXERCISE Reason for Termination: Infusion complete Max HR: 88 bpm Max Blood Pressure: 140/66mmHg Blood Pressure response to exercise: Normal blood pressure response during stress. Chest Pain: No. Arrhythmia: No. ST Change: No. INTERPRETATION Stress EKG Conclusion: Baseline EKG showed sinus rhythm. No ischemic changes at peak stress. No arr hythmias. Imaging Protocol IMAGE PROTOCOL: Rest Tc-99m/stress Tc-99m 1 day Rest: Stress: Viability: Radiopharm.Tc99m HksbifqqoCr46g Sestamibi [id number] 32mCi Img Date 07/11/2018 07/11/2018 Inj-Img [id number]. 60min. Rest Admin Site:IV - Right ForearmAdministrator:SUSIE Renae ARRT (R)(N) Stress Admin Site: IV - Right ForearmAdministrator: RT Arturo Mills)(N) STRESS DATA End Diast. Vol.58.0mlLVEDV index BSA30.0ml End Syst. Vol.13.0mlLVESV index BSA7.0ml Myocardial Mass98.0gEject. Rigwkdjc75.0% Stress Scores Regional WT0.00Summed WT0.00 Regional WM0.00Summed WM2.00 Study quality was good. Left Ventricular size was Normal at Rest and Stress. Lung uptake was . Left Ventricular ejection fraction is 78%. The rest and stress images show normal perfusion, normal contraction and thickening. LV Perf. Quant 17 Seg. SSS0.00 17 Seg. SRS0.00 17 Seg. SDS0.00 Stress Defect Extent (% LAD)0.00Rest Defect Extent (% LAD)0.00Rev. Defect Extent (% LAD)0.00 Stress Defect Extent (% LCX) 0.00Rest Defect Extent (% LCX)0.00Rev. Defect Extent (% LCX)0.00 Stress Defect Extent (% RCA)0.00Rest Defect Extent (% RCA)0.00Rev. Defect Extent (% RCA)0.00 Stress Defect Extent (% CHIQUI)0.00Rest Defect Extent (% CHIQUI)0.00Rev. Defect Extent (% CHIQUI)0.00 Conclusion 1. Regadenoson cardioisotope stress test did not show any evidence of ischemia or infarct. 2. Normal left ventricular systolic function with ejection fraction calculated at 78%. 3. Low risk for cardiac events. Signed by : Flakita Brewster, Electronically Approved : 07/12/2018 10:30:51
== END | disposition home or self-care (01) ==
LOC: NM 07:55
PROVIDERS: ATTEND Internal Medicine Cardiovascular Disease
DX: R06.09 Other forms of dyspnea (principal); I10 Essential (primary) hypertension; Z79.01 Long term (current) use of anticoagulants; Z83.42 Family history of familial hypercholesterolemia
CPT/HCPCS: 78452; 93017; 96374; A9500; J2785

== ENCOUNTER → 2018-08-23 | Outpatient (CLI) | payer MEDICARE ==
[~2018-08-23] MED LIST changes: -REGADENOSON 0.4 MG/5 ML DISP.SYRIN. IV ONE
--- NOTE | 2018-08-23 11:44 | RAD ---
Indication: Left arm soft tissue nodule TECHNIQUE: Limited ultrasound of the left upper arm in the region of pain/lump. COMPARISON: None FINDINGS: No abnormal sonographic findings seen in the region of perceived lump and pain. IMPRESSION: As above. Electronically signed by: Burak Moses DO (08/23/2018 11:41 AM) [facility]
== END | disposition home or self-care (01) ==
LOC: US 11:50
PROVIDERS: ATTEND Nurse Practitioner Family
DX: M79.89 Other specified soft tissue disorders (principal)
CPT/HCPCS: 76881

== ENCOUNTER 2019-01-01 13:49 | Emergency (ER) | payer MEDICARE ==
[~2019-01-01] VITALS: Ht 165.1 cm; Wt 81.6 kg
[2019-01-01] MEDS ORDERED: DICYCLOMINE HCL 10 MG CAPSULE PO ONE (16:00)
[2019-01-01] MEDS ORDERED: IV NORMAL SALINE 1000ML BAG 1,000 ML IV ONE (16:00)
[2019-01-01] MEDS ORDERED: FAMOTIDINE 20 MG/2 ML VIAL IVP ONE (16:00)
[2019-01-01] MEDS ORDERED: ONDANSETRON PF 4 MG/2 ML VIAL. IV ONE (16:00)
--- NOTE | 2019-01-01 16:02 | PHYS DOC ---
Adult General Chief Complaint Chief Complaint: DIARRHEA HPI HPI Patient is a 73 year old female who presents to the ED today with complaints of diarrhea and vomiting. Patient states yesterday she had [place] food, she states she went home and experienced an episode of diarrhea. 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 She states she later developed an episode of vomiting and then later severe diarrhea. Patient denies any hematemesis or melena. Denies any abdominal pain. She states her stomach is growling. 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 (FRANSISCO HANNA APRN) Review of Systems Review of Systems Constitutional: Denies fever or chills [] Eyes: Denies change in visual acuity, redness, or eye pain [] HENT: Denies nasal congestion or sore throat [] Respiratory: Denies cough or shortness of breath [] Cardiovascular: No additional information not addressed in HPI [] GI: Reports diarrhea and vomiting. Denies abdominal pain, bloody stools : Denies dysuria or hematuria [] Musculoskeletal: Denies back pain or joint pain [] Integument: Denies rash or skin lesions [] Neurologic: Denies headache, focal weakness or sensory changes [] All other systems were reviewed and found to be within normal limits, except as documented in this note. (FRANSISCO HANNA APRN) Current Medications Current Medications Current Medications Medications (Trade) Dose Ordered Sig/Roge Start Time Stop Time Status Last Admin Dose Admin Dicyclomine HCl (Bentyl) 20 mg 1X ONCE 01/01/19 16:00 01/01/19 16:01 DC 01/01/19 16:33 20 MG Famotidine (Pepcid Vial) 20 mg 1X ONCE 01/01/19 16:00 01/01/19 16:01 DC 01/01/19 16:36 20 MG Ondansetron HCl (Zofran) 4 mg 1X ONCE 01/01/19 16:00 01/01/19 16:01 DC 01/01/19 16:34 4 MG Sodium Chloride 1,000 ml @ 1,000 mls/hr 1X ONCE 01/01/19 16:00 01/01/19 16:59 DC 01/01/19 16:34 1,000 MLS/HR (DANIEL MARTINEZ DO) Allergies Allergies Allergies Coded Allergies Type Severity Reaction Last Updated Verified No Known Drug Allergies 07/15/17 No (DANIEL MARTINEZ DO) Physical Exam Physical Exam Constitutional: Well developed, well nourished, no acute distress, non-toxic appearance. [] HENT: Normocephalic, atraumatic, bilateral external ears normal, oropharynx moist, no oral exudates, nose normal. [] Eyes: PERRLA, EOMI, conjunctiva normal, no discharge. [] Neck: Normal range of motion, no tenderness, supple, no stridor. [] Cardiovascular:Heart rate regular rhythm, no murmur [] Lungs & Thorax: Bilateral breath sounds clear to auscultation [] Abdomen: Hyperactive bowel sounds, soft, no tenderness, no masses, no pulsatile masses. [] Skin: Warm, dry, no erythema, no rash. [] Back: No tenderness, no CVA tenderness. [] Extremities: No tenderness, no cyanosis, no clubbing, ROM intact, no edema. [] Neurologic: Alert and oriented X 3, normal motor function, normal sensory function, no focal deficits noted. [] Psychologic: Affect normal, judgement normal, mood normal. [] (FRANSISCO HANNA APRN) Current Patient Data Vital Signs Vital Signs Date Time Temp Pulse Resp B/P (MAP) Pulse Ox O2 Delivery O2 Flow Rate FiO2 01/01/19 18:00 64 18 143/64 (90) 99 Room Air 01/01/19 16:17 98.9 98.9 (DANIEL MARTINEZ DO) Lab Values Laboratory Tests Test 01/01/19 16:30 01/01/19 17:55 White Blood Count 14.3 x10^3/uL (4.0-11.0) H Red Blood Count 4.35 x10^6/uL (3.50-5.40) Hemoglobin 13.0 g/dL (12.0-15.5) Hematocrit 38.8 % (36.0-47.0) Mean Corpuscular Volume 89 fL (79-100) Mean Corpuscular Hemoglobin 30 pg (25-35) Mean Corpuscular Hemoglobin Concent 34 g/dL (31-37) Red Cell Distribution Width 13.9 % (11.5-14.5) Platelet Count 293 x10^3/uL (140-400) Neutrophils (%) (Auto) 88 % (31-73) H Lymphocytes (%) (Auto) 7 % (24-48) L Monocytes (%) (Auto) 5 % (0-9) Eosinophils (%) (Auto) 0 % (0-3) Basophils (%) (Auto) 0 % (0-3) Neutrophils # (Auto) 12.5 x10^3/uL (1.8-7.7) H Lymphocytes # (Auto) 0.9 x10^3/uL (1.0-4.8) L Monocytes # (Auto) 0.8 x10^3/uL (0.0-1.1) Eosinophils # (Auto) 0.0 x10^3/uL (0.0-0.7) Basophils # (Auto) 0.1 x10^3/uL (0.0-0.2) Segmented Neutrophils % 89 % (35-66) H Band Neutrophils % 3 % (0-9) Lymphocytes % 3 % (24-48) L Monocytes % 4 % (0-10) Eosinophils % 1 % (0-5) Toxic Granulation Slight Platelet Estimate Adequate (ADEQUATE) Sodium Level 140 mmol/L (136-145) Potassium Level 4.3 mmol/L (3.5-5.1) Chloride Level 103 mmol/L (98-107) Carbon Dioxide Level 23 mmol/L (21-32) Anion Gap 14 (6-14) Blood Urea Nitrogen 23 mg/dL (7-20) H Creatinine 1.5 mg/dL (0.6-1.0) H Estimated GFR (Cockcroft-Gault) 34.1 BUN/Creatinine Ratio 15 (6-20) Glucose Level 100 mg/dL (70-99) H Calcium Level 10.1 mg/dL (8.5-10.1) Total Bilirubin 0.5 mg/dL (0.2-1.0) Aspartate Amino Transferase (AST) 20 U/L (15-37) Alanine Aminotransferase (ALT) 16 U/L (14-59) Alkaline Phosphatase 106 U/L (46-116) Total Protein 8.4 g/dL (6.4-8.2) H Albumin 4.2 g/dL (3.4-5.0) Albumin/Globulin Ratio 1.0 (1.0-1.7) Lipase 252 U/L (73-393) Ethyl Alcohol Level < 10 mg/dL (0-10) Urine Collection Type Void Urine Color Yellow Urine Clarity Clear Urine pH 5.0 Urine Specific Bolt 1.025 Urine Protein Negative mg/dL (NEG-TRACE) Urine Glucose (UA) Negative mg/dL (NEG) Urine Ketones (Stick) Negative mg/dL (NEG) Urine Blood Negative (NEG) Urine Nitrite Negative (NEG) Urine Bilirubin Negative (NEG) Urine Urobilinogen Dipstick 0.2 mg/dL (0.2 mg/dL) Urine Leukocyte Esterase Moderate (NEG) Urine RBC 0 /HPF (0-2) Urine WBC >40 /HPF (0-4) Urine Squamous Epithelial Cells Few /LPF Urine Bacteria Mod /HPF (0-FEW) Urine Hyaline Casts Moderate /HPF Urine Mucus Mod /LPF Urine Opiates Screen Neg (NEG) Urine Methadone Screen Neg (NEG) Urine Barbiturates Neg (NEG) Urine Phencyclidine Screen Neg (NEG) Urine Amphetamine/Methamphetamine Neg (NEG) Urine Benzodiazepines Screen Neg (NEG) Urine Cocaine Screen Neg (NEG) Urine Cannabinoids Screen Neg (NEG) Urine Ethyl Alcohol Neg (NEG) Laboratory Tests 01/01/19 16:30 Laboratory Tests 01/01/19 16:30 (DANIEL MARTINEZ DO) Lab Values Laboratory Tests Test 01/01/19 16:30 01/01/19 17:55 White Blood Count 14.3 x10^3/uL (4.0-11.0) H Red Blood Count 4.35 x10^6/uL (3.50-5.40) Hemoglobin 13.0 g/dL (12.0-15.5) Hematocrit 38.8 % (36.0-47.0) Mean Corpuscular Volume 89 fL (79-100) Mean Corpuscular Hemoglobin 30 pg (25-35) Mean Corpuscular Hemoglobin Concent 34 g/dL (31-37) Red Cell Distribution Width 13.9 % (11.5-14.5) Platelet Count 293 x10^3/uL (140-400) Neutrophils (%) (Auto) 88 % (31-73) H Lymphocytes (%) (Auto) 7 % (24-48) L Monocytes (%) (Auto) 5 % (0-9) Eosinophils (%) (Auto) 0 % (0-3) Basophils (%) (Auto) 0 % (0-3) Neutrophils # (Auto) 12.5 x10^3/uL (1.8-7.7) H Lymphocytes # (Auto) 0.9 x10^3/uL (1.0-4.8) L Monocytes # (Auto) 0.8 x10^3/uL (0.0-1.1) Eosinophils # (Auto) 0.0 x10^3/uL (0.0-0.7) Basophils # (Auto) 0.1 x10^3/uL (0.0-0.2) Segmented Neutrophils % 89 % (35-66) H Band Neutrophils % 3 % (0-9) Lymphocytes % 3 % (24-48) L Monocytes % 4 % (0-10) Eosinophils % 1 % (0-5) Toxic Granulation Slight Platelet Estimate Adequate (ADEQUATE) Sodium Level 140 mmol/L (136-145) Potassium Level 4.3 mmol/L (3.5-5.1) Chloride Level 103 mmol/L (98-107) Carbon Dioxide Level 23 mmol/L (21-32) Anion Gap 14 (6-14) Blood Urea Nitrogen 23 mg/dL (7-20) H Creatinine 1.5 mg/dL (0.6-1.0) H Estimated GFR (Cockcroft-Gault) 34.1 BUN/Creatinine Ratio 15 (6-20) Glucose Level 100 mg/dL (70-99) H Calcium Level 10.1 mg/dL (8.5-10.1) Total Bilirubin 0.5 mg/dL (0.2-1.0) Aspartate Amino Transferase (AST) 20 U/L (15-37) Alanine Aminotransferase (ALT) 16 U/L (14-59) Alkaline Phosphatase 106 U/L (46-116) Total Protein 8.4 g/dL (6.4-8.2) H Albumin 4.2 g/dL (3.4-5.0) Albumin/Globulin Ratio 1.0 (1.0-1.7) Lipase 252 U/L (73-393) Ethyl Alcohol Level < 10 mg/dL (0-10) Urine Collection Type Void Urine Color Yellow Urine Clarity Clear Urine pH 5.0 Urine Specific Bolt 1.025 Urine Protein Negative mg/dL (NEG-TRACE) Urine Glucose (UA) Negative mg/dL (NEG) Urine Ketones (Stick) Negative mg/dL (NEG) Urine Blood Negative (NEG) Urine Nitrite Negative (NEG) Urine Bilirubin Negative (NEG) Urine Urobilinogen Dipstick 0.2 mg/dL (0.2 mg/dL) Urine Leukocyte Esterase Moderate (NEG) Urine RBC 0 /HPF (0-2) Urine WBC >40 /HPF (0-4) Urine Squamous Epithelial Cells Few /LPF Urine Bacteria Mod /HPF (0-FEW) Urine Hyaline Casts Moderate /HPF Urine Mucus Mod /LPF Urine Opiates Screen Neg (NEG) Urine Methadone Screen Neg (NEG) Urine Barbiturates Neg (NEG) Urine Phencyclidine Screen Neg (NEG) Urine Amphetamine/Methamphetamine Neg (NEG) Urine Benzodiazepines Screen Neg (NEG) Urine Cocaine Screen Neg (NEG) Urine Cannabinoids Screen Neg (NEG) Urine Ethyl Alcohol Neg (NEG) Laboratory Tests 01/01/19 16:30 Laboratory Tests 01/01/19 16:30 (FRANSISCO HANNA APRN) EKG EKG [] (FRANSISCO HANNA APRN) Radiology/Procedures Radiology/Procedures []PROCEDURE: CT ABDOMEN PELVIS WO CONTRAST Exam: CT abdomen and pelvis without contrast INDICATION: Abdominal pain TECHNIQUE: Sequential axial images through the abdomen and pelvis obtained without IV contrast. Sagittal and coronal reformatted images were reconstructed from the axial data and reviewed. Comparisons: None FINDINGS: Heart size is normal. No pericardial effusion. Strandy opacities within the portion of lung bases representing atelectasis. No pleural effusion. Evaluation of solid organs is limited secondary to noncontrast technique. Liver, spleen, pancreas, gallbladder and adrenals are unremarkable. Kidneys demonstrate symmetric enhancement. No perinephric inflammation or hydronephrosis. No renal or ureteral calculi are identified. Bladder is partially distended and not well evaluated. Uterus not enlarged. No abnormal adnexal mass. Diverticulosis noted predominantly within the sigmoid colon without evidence of acute diverticulitis. Submucosal fat deposition within the ascending colon. Remainder of the large and small bowel are unremarkable. No obstruction. Appendix is normal. No free intra-abdominal air or fluid. Small hiatal hernia. Abdominal aorta has a normal course and caliber. No enlarged intra-abdominal lymph nodes are identified. No suspicious osseous lesions or acute fractures. IMPRESSION: 1. Diverticulosis without evidence of acute diverticulitis 2. Submucosal fat deposition predominantly within the ascending colon which may be sequela of repetitive inflammatory events. 3. No acute process identified within the abdomen or pelvis. Exposure: One or more of the following in the visualized dose reduction techniques were utilized for this examination: 1. Automated exposure control 2. Adjustment of the MA and/or KV according to patient size 3. Use of iterative of reconstructive technique Electronically signed by: Sujey Olvera MD (01/01/2019 5:42 PM) [facility] DICTATED and SIGNED BY: SUJEY OLVERA MD DATE: 01/01/191741 (FRANSISCO HANNA APRN) Course & Med Decision Making Course & Med Decision Making Pertinent Labs and Imaging studies reviewed. (See chart for details) This is a 73-year-old female patient who presents to the ED today with complaints of diarrhea and vomiting that began yesterday after having [place] food. She also had amoxicillin this morning on an empty stomach. CBC with a WBC of 14.3, CMP with creatinine of 1.5, BUN 23. Patient was given a liter of fluid. CT of the abdomen and pelvic was negative for any acute findings, noted for diverticulosis. Urine analysis is noted for UTI. Patient was discharged with cephalexin. Also discharged with Zofran and dicyclomine and instructed to push fluids. Follow-up with PCP in the course of this week or next week. (FRANSISCO HANNA APRN) Dragon Disclaimer Dragon Disclaimer This electronic medical record was generated, in whole or in part, using a voice recognition dictation system. (FRANSISCO HANNA APRN) Departure Departure Impression: Primary Impression: Vomiting Additional Impressions: Diarrhea UTI (urinary tract infection) Disposition: 01 HOME, SELF-CARE Condition: STABLE Referrals: ELÍAS CLEARY APRN (PCP) follow up with your doctor in one week Patient Instructions: Diarrhea, Nausea and Vomiting, Urinary Tract Infection Additional Instructions: You were evaluated in the emergency room for diarrhea and vomiting. Your urine was also noted for infection. We put you on antibiotics, ensure you complete them. Please push fluids. Please maintain good hand hygiene. Take the prescribed medications as ordered and follow-up with your doctor in the course of this week or next week. Come back to the ED at any point symptoms worsen. Scripts Dicyclomine Hcl (DICYCLOMINE HCL) 20 Mg Tablet 1 TAB PO TID, #30 TAB 0 Refills Prov: FRANSISCO HANNA APRN 01/01/19 Ondansetron Hcl (ZOFRAN) 4 Mg Tablet 1 TAB PO Q6HRS, #20 TAB Prov: FRANSISCO HANNA APRN 01/01/19 Cephalexin (CEPHALEXIN) 500 Mg Tablet 1 TAB PO BID, #14 TAB Prov: FRANSISCO HANNA APRN 01/01/19 Attending Signature Attending Signature I have reviewed the PA/GAMBLING BOX PERSON's note and plan of care. I was available for consultation as needed during the patient's visit in the emergency department. I agree with the clinical impression, plan, and disposition. (DANIEL MARTINEZ DO) Attending Signature Attending Signature I have reviewed the PA/GAMBLING BOX PERSON's note and plan of care. I was available for consultation as needed during the patient's visit in the emergency department. I agree with the clinical impression, plan, and disposition. (DANIEL MARTINEZ DO) Problem Qualifiers Primary Impression: Vomiting Vomiting type: unspecified Vomiting Intractability: non-intractable Nausea presence: unspecified Qualified Codes: R11.10 - Vomiting, unspecified Additional Impressions: Diarrhea Diarrhea type: unspecified type Qualified Codes: R19.7 - Diarrhea, unspecified UTI (urinary tract infection) Urinary tract infection type: site unspecified Hematuria presence: without hematuria Qualified Codes: N39.0 - Urinary tract infection, site not specified FRANSISCO HANNA RAMEZ Jan 01, 2019 16:02 DANIEL MARTINEZ DO Jan 02, 2019 04:43
[2019-01-01 16:41] LABS: BASO # 0.1 x10^3/uL (0.0-0.2); BASO % 0 % (0-3); EOS % 0 % (0-3); HEMATOCRIT 38.8 % (36.0-47.0); LYMPH # 0.9 x10^3/uL (1.0-4.8); LYMPH % 7 % (24-48); MEAN CORPUSCULAR HEMOGLOBIN 30 pg (25-35); MEAN CORPUSCULAR HGB CONC 34 g/dL (31-37); MEAN CORPUSCULAR VOLUME 89 fL (79-100); MONO # 0.8 x10^3/uL (0.0-1.1); MONO % 5 % (0-9); NEUT # 12.5 x10^3/uL (1.8-7.7); NEUT % 88 % (31-73); PLATELET COUNT 293 x10^3/uL (140-400); RED BLOOD COUNT 4.35 x10^6/uL (3.50-5.40); RED CELL DISTRIBUTION WIDTH 13.9 % (11.5-14.5); WHITE BLOOD COUNT 14.3 x10^3/uL (4.0-11.0)
[2019-01-01 16:51] LABS: CALCIUM 10.1 mg/dL (8.5-10.1); CREATININE 1.5 mg/dL (0.6-1.0); GFR 34.1; POTASSIUM 4.3 mmol/L (3.5-5.1)
[2019-01-01 16:58] LABS: ALBUMIN 4.2 g/dL (3.4-5.0); TOTAL BILIRUBIN 0.5 mg/dL (0.2-1.0); TOTAL PROTEIN 8.4 g/dL (6.4-8.2)
[2019-01-01 17:32] LABS: % BANDS 3 % (0-9); % EOS 1 % (0-5); % LYMPHS 3 % (24-48); % MONOS 4 % (0-10); % SEGS 89 % (35-66); PLT ESTIMATE ADEQUATE (ADEQUATE); TOXIC GRANULATION SLIGHT
--- NOTE | 2019-01-01 17:45 | RAD ---
Exam: CT abdomen and pelvis without contrast INDICATION: Abdominal pain TECHNIQUE: Sequential axial images through the abdomen and pelvis obtained without IV contrast. Sagittal and coronal reformatted images were reconstructed from the axial data and reviewed. Comparisons: None FINDINGS: Heart size is normal. No pericardial effusion. Strandy opacities within the portion of lung bases representing atelectasis. No pleural effusion. Evaluation of solid organs is limited secondary to noncontrast technique. Liver, spleen, pancreas, gallbladder and adrenals are unremarkable. Kidneys demonstrate symmetric enhancement. No perinephric inflammation or hydronephrosis. No renal or ureteral calculi are identified. Bladder is partially distended and not well evaluated. Uterus not enlarged. No abnormal adnexal mass. Diverticulosis noted predominantly within the sigmoid colon without evidence of acute diverticulitis. Submucosal fat deposition within the ascending colon. Remainder of the large and small bowel are unremarkable. No obstruction. Appendix is normal. No free intra-abdominal air or fluid. Small hiatal hernia. Abdominal aorta has a normal course and caliber. No enlarged intra-abdominal lymph nodes are identified. No suspicious osseous lesions or acute fractures. IMPRESSION: 1. Diverticulosis without evidence of acute diverticulitis 2. Submucosal fat deposition predominantly within the ascending colon which may be sequela of repetitive inflammatory events. 3. No acute process identified within the abdomen or pelvis. Exposure: One or more of the following in the visualized dose reduction techniques were utilized for this examination: 1. Automated exposure control 2. Adjustment of the MA and/or KV according to patient size 3. Use of iterative of reconstructive technique Electronically signed by: Sujey Banerjee MD (01/01/2019 5:42 PM) [facility]
[2019-01-01 18:00] VITALS: BP 143/64
[2019-01-01 18:03] LABS: BILIRUBIN,URINE NEGATIVE (NEG); CLARITY,URINE CLEAR; COLOR,URINE YELLOW; NITRITE,URINE NEGATIVE (NEG); PROTEIN,URINE NEGATIVE (NEG-TRACE); UROBILINOGEN,URINE 0.2 mg/dL (0.2 mg/dL)
[2019-01-01 18:09] LABS: BARBITURATES NEG (NEG); BENZODIAZEPINES NEG (NEG); CANNABINOIDS NEG (NEG); COCAINE NEG (NEG); METHADONE NEG (NEG); OPIATES NEG (NEG); PHENCYCLIDINE NEG (NEG)
[2019-01-01 18:10] LABS: AMPHETAMINE/METHAMPHETAMINE NEG (NEG)
[2019-01-01 18:13] LABS: BACTERIA,URINE MOD /HPF (0-FEW); RBC,URINE 0 /HPF (0-2); WBC,URINE >40 /HPF (0-4)
[2019-01-01 18:14] LABS: HYALINE CASTS, URINE MODERATE /HPF; SQUAMOUS EPITHELIAL CELL,UR FEW /LPF
[2019-01-01] MEDS ORDERED: ONDA4TAB7 PO (19:19)
[2019-01-01] MEDS ORDERED: CEPH500T PO (19:19)
[2019-01-01] MEDS ORDERED: DICY20TA3 PO (19:19)
== END 2019-01-01 19:20 | disposition home or self-care (01) ==
LOC: ER 13:49
DX: R19.7 Diarrhea, unspecified (principal); R11.10 Vomiting, unspecified; N39.0 Urinary tract infection, site not specified
CPT/HCPCS: 36415; 74176; 80053; 80307; 81001; 83690; 85007; 85025; 96361; 96374; 96375; 99285; G0480; J2405; J3490; J7030

== ENCOUNTER → 2019-03-26 | Outpatient (CLI) | payer MEDICARE ==
[~2019-03-26] MED LIST changes: +CEPH500T PO; +DICY20TA3 PO; +OMEP40CA45 PO; -OMEP40CA5 PO; +ONDA4TAB7 PO
[2019-03-26 15:28] LABS: BILIRUBIN,URINE NEGATIVE (NEG); CLARITY,URINE CLEAR; COLOR,URINE YELLOW; NITRITE,URINE NEGATIVE (NEG); PROTEIN,URINE NEGATIVE (NEG-TRACE); UROBILINOGEN,URINE 0.2 mg/dL (0.2 mg/dL)
[2019-03-26 15:47] LABS: BACTERIA,URINE FEW /HPF (0-FEW); RBC,URINE 0 /HPF (0-2); SQUAMOUS EPITHELIAL CELL,UR FEW /LPF
== END | disposition home or self-care (01) ==
LOC: LAB 14:45
PROVIDERS: ATTEND Nurse Practitioner Family
DX: R30.0 Dysuria (principal)
CPT/HCPCS: 81001; 87086

== ENCOUNTER 2019-04-20 08:38 | Outpatient (CLI) | payer MEDICARE ==
[2019-04-20] VITALS (10 sets, daily range): BP systolic 104–138; BP diastolic 53–69
[~2019-04-20] VITALS: Ht 165.1 cm; Wt 83.9 kg
[2019-04-20] MEDS ORDERED: LACT1CAP6 PO (09:49)
[2019-04-20] MEDS ORDERED: CRESTOR5 MG PO (09:49)
[2019-04-20 09:50] LABS: HEMATOCRIT 36.7 % (36.0-47.0); HEMOGLOBIN 12.4 g/dL (12.0-15.5); RED BLOOD COUNT 4.18 x10^6/uL (3.50-5.40); RED CELL DISTRIBUTION WIDTH 13.8 % (11.5-14.5); WHITE BLOOD COUNT 6.1 x10^3/uL (4.0-11.0)
[2019-04-20 10:00] LABS: CALCIUM 9.4 mg/dL (8.5-10.1); CREATININE 1.1 mg/dL (0.6-1.0); GFR 48.7; POTASSIUM 4.5 mmol/L (3.5-5.1)
[2019-04-20 10:01] LABS: PROTHROMBIN TIME PATIENT 11.8 SEC (11.7-14.0)
[2019-04-20] MEDS ORDERED: NITROGLYCERIN 200 MCG/2 ML SYRINGE FOR CATH/VASC LAB. ONE (10:10)
[2019-04-20] MEDS ORDERED: fentaNYL PF VIAL 100 MCG/2 ML VIAL ONE (10:10)
[2019-04-20] MEDS ORDERED: MIDAZOLAM HCL/PF 2 MG/2 ML VIAL. ONE (10:10)
[2019-04-20] MEDS ORDERED: HEPARIN for IV BOLUS 10,000 UNIT/10 ML VIAL. ONE (10:10)
[2019-04-20] MEDS ORDERED: VERAPAMIL 5 MG/2 ML VIAL. ONE (10:10)
[2019-04-20] MEDS ORDERED: LIDOCAINE 1% PF 2 ML VIAL. ONE (10:11)
[2019-04-20] MEDS ORDERED: IODIXANOL 320 MG/ML 100 ML VIAL. ONE (10:11)
[2019-04-20] MEDS ORDERED: VERAPAMIL 5 MG/2 ML VIAL. IART ONE (10:30)
[2019-04-20] MEDS ORDERED: HEPARIN for IV BOLUS 10,000 UNIT/10 ML VIAL. IART ONE (10:30)
[2019-04-20] MEDS ORDERED: IODIXANOL 320 MG/ML 100 ML VIAL. IART ONE (10:30)
[2019-04-20] MEDS ORDERED: fentaNYL PF VIAL 100 MCG/2 ML VIAL IV ONE (10:30)
[2019-04-20] MEDS ORDERED: MIDAZOLAM HCL/PF 2 MG/2 ML VIAL. IV ONE (10:30)
[2019-04-20] MEDS ORDERED: NITROGLYCERIN 200 MCG/2 ML SYRINGE FOR CATH/VASC LAB. IART ONE (10:30)
[2019-04-20] MEDS ORDERED: LIDOCAINE 1% PF 2 ML VIAL. INJ ONE (11:00)
[2019-04-20] MEDS ORDERED: IV 1/2 NORMAL SALINE 1,000 ML IV SCH (11:05)
--- NOTE | 2019-04-20 11:05 | PDOC ---
MODERATE SEDATION ASSESSMENT RISKS/ALTERNATIVES Risks/Alternatives Risks and alternatives of this type of sedation and procedure discussed with: RISK/ALTERNATIVES: Patient H & P ON CHART H & P H & P on chart and reviewed for co-morbid conditions and appropriate labs. H&P ON CHART: Yes STATUS PREG STATUS ASSESSED: N/A MEDS/ALLERGIES REVIEWED Meds/Allergies Reviewed Medications and Allergies including time and route of recently administered narcotics and sedatives. MEDS/ALLERGIES REVIEWED: Yes ASA RATING ASA RATING: II AIRWAY ASSESSMENT Airway Assessment Airway patency, oral function limitations, presence of caps, crowns, dentures, partials, and ability to extend neck assessed. AIRWAY ASSESSMENT: Yes MALLAMPATI SCORE MALLAMPATI SCORE: II PRE-SEDATION ASSESSMENT PRE-SEDATION ASSESSMENT: Yes FLAKITA BREWSTER MD Apr 20, 2019 11:04
--- NOTE | 2019-04-20 11:09 | CARD ---
MR#: [id number] Date of Study: 04/20/2019 Ordering Physician: FLAKITA BREWSTER, Referring Physician: FLAKITA BREWSTER Tech: ELIAS MCGARRY RTR APPROVED REPORT Technologist: ELIAS MCGARRY RTR Nurse: EULALIA ALLAN RN Procedure(s) performed: Left heart catheterization, selective coronary angiography and left ventricul ography via right transradial approach MODERATE SEDATION TIME: 20 MINUTES FLUORO TIME: 2.7 MIN DOSE: 29.8 GYCM2 CONTRAST: 85CC INDICATION The indication(s) include : Refractory dyspnea on exertion. [facility] Clinical Frailty Scale [facility] Clinical Frailty Scale: Mildly Frail Heart Failure Heart Failure: No PROCEDURE NARRATIVE After explaining the risks, benefits and alternative options, informed consent was obtained from doug ent. Patient was brought to the cardiac Tax [employer] [facility] and right wrist was prepped and draped in the usual fashion after confirming a positive modified Melvin's test. Arterial access was obtained in the [facility] t radial artery and a 6 Argentine sheath was inserted. 6 Argentine Nacho catheter was used to perform eunice ective angiography of the left and right coronary arteries. 6 Argentine pigtail catheter was used to pe rform left ventriculography. Patient tolerated the procedure well. Hemostasis was achieved using TR band. There were no immediate complications. The following findings were noted. FINDINGS 1. Hemodynamics: Left ventricular end-diastolic pressure of 6 mmHg. No pullback gradient across the aortic valve. 2. Left ventriculography: Normal left ventricle systolic function with ejection fraction estimated at 65%. No significant mitral regurgitation seen. 3. Coronary angiography: a. The left main coronary artery arose from the left sinus of Valsalva, gave rise to the left anteri or descending and left circumflex arteries and did not show any significant stenosis. b. The left anterior descending artery did not show any significant stenosis. c. The left circumflex artery did not show any significant stenosis. d. The right coronary artery was a dominant vessel arising from the right sinus of Valsalva that did not show any significant stenosis. Conclusion 1. No significant coronary artery disease 2. Normal left ventricle systolic function with ejection fraction estimated at 65% Signed by : Flakita Brewster, Electronically Approved : 04/20/2019 11:09:10
[2019-04-20] MEDS ORDERED: NITROGLYCERIN SUBLINGUAL 0.4 MG BOTTLE OF 25. SL PRN (11:15)
== END 2019-04-20 14:36 | disposition home or self-care (01) ==
LOC: CCL 08:38
PROVIDERS: ATTEND Internal Medicine Cardiovascular Disease
DX: R06.09 Other forms of dyspnea (principal); Z79.899 Other long term (current) drug therapy; Z79.01 Long term (current) use of anticoagulants
CPT/HCPCS: 36415; 80048; 85027; 85610; 93458; 99152; C1769; C1892; J1644; J2250; J3010; J3490; Q9967

== ENCOUNTER → 2019-05-01 | Outpatient (CLI) | payer MEDICARE ==
[2019-04-20 14:05] VITALS: BP 119/58
[~2019-05-01] MED LIST changes: +LACT1CAP6 PO
--- NOTE | 2019-05-02 18:33 | RAD ---
3d digital tomography Bilateral History: Routine screening Technique: Bilateral 3d digital tomographic views were obtained and reviewed on a workstation. In addition, CAD - computer aided detection was utilized. Comparison: Most recently on 04/25/2018. Findings: Breast Tissue Density A : The breast tissue is composed of predominantly fatty tissue. There are no suspicious masses, microcalcifications or areas of architectural distortion. Impression: No suspicious findings. BI-RADS Category 1: Negative. Normal interval followup. The patient will receive a letter with the results in the mail. A mammogram does not have 100% sensitivity and therefore a negative imaging study should not delay further work up of a suspicious abnormality. Patient information is entered into the system with a target due date for the next screening mammogram. The patient will receive a reminder. "Our facility is accredited by the [employer] Mammography Program."
== END | disposition home or self-care (01) ==
LOC: MAMMO 10:39
PROVIDERS: ATTEND Nurse Practitioner Family
DX: Z12.31 Encounter for screening mammogram for malignant neoplasm of breast (principal)
CPT/HCPCS: 77063; 77067

== ENCOUNTER → 2019-11-26 | Outpatient (CLI) | payer MEDICARE ==
[2019-04-20 14:05] VITALS: BP 119/58
[~2019-11-26] MED LIST changes: +POTA20TA4 PO; -POTA20TA82 PO
--- NOTE | 2019-11-26 16:06 | RAD ---
EXAM: MR RIGHT SHOULDER WITHOUT CONTRAST INDICATION: Worsening right shoulder pain, limited range of motion when raising arm COMPARISON: None TECHNIQUE: Multiplanar, multisequence imaging of the right shoulder without contrast. FINDINGS: The exam is limited due to motion artifact on multiple sequences. ROTATOR CUFF: There is supraspinatus and infraspinatus tendinopathy with interstitial tearing. No definite full-thickness rotator cuff tear. The subscapularis and teres minor tendons are grossly intact. No rotator cuff muscle atrophy or edema. LABRUM: Limited evaluation on coronal series due to extensive motion artifact. There is probable degenerative fraying of the superior labrum. BICEPS TENDON: Mild intra-articular biceps tendinopathy. ACROMIOCLAVICULAR JOINT: Mild acromioclavicular degenerative joint disease with small osteophytes. Type I acromion without downsloping. GLENOHUMERAL JOINT: There are cystic changes in the posterior superior humeral head. No acute fracture. Limited evaluation of cartilage due to motion artifact. OTHER: Small joint effusion. Small amount of fluid in the subacromial-subdeltoid bursa.. IMPRESSION: 1. Limited exam due to extensive motion artifact. 2. There is at least tendinopathy with interstitial tearing of supraspinatus and infraspinatus tendon. No definite full-thickness rotator cuff tear. 3. Mild intra-articular biceps tendinopathy. 4. Mild acromioclavicular degenerative joint disease. 5. Small joint effusion and mild subacromial-subdeltoid bursitis. Electronically signed by: Leeann Russ MD (11/26/2019 4:03 PM) [id number]
--- NOTE | 2019-11-26 16:17 | RAD ---
EXAM: MRI right upper extremity without contrast INDICATION: Right arm pain and limited range of motion, palpable bump. COMPARISON: Right shoulder radiograph 08/29/2019 TECHNIQUE: Multiplanar, multisequence imaging of the right humeral shaft without contrast. FINDINGS: Bones: Marrow signal is normal. No acute fracture or osseous lesion. Soft tissue: There is a palpable marker overlying the lateral aspect of the mid humeral shaft. No soft tissue abnormality directly deep to the marker. Approximately 3 cm cranial to the marker, there is a 5 x 6 mm focus of increased T2 signal in the subcutaneous soft tissue just deep to the skin (image 19, series 5). This is of uncertain significance, and may be due to a small vessel, however a small soft tissue lesion is possible. Otherwise, no soft tissue abnormality or muscle abnormality. IMPRESSION: 1. No abnormality directly deep to the palpable marker at the level of the humeral midshaft. 2. Small, 6 mm focus of T2 hyperintense signal in the subcutaneous soft tissue approximate 3 cm cranial to the palpable marker. This is of uncertain significance and could be due to a vessel, however small subcutaneous lesion is possible. MRI with contrast could be obtained to further evaluate, if clinically indicated. Electronically signed by: Leeann Russ MD (11/26/2019 4:14 PM) [id number]
== END | disposition home or self-care (01) ==
LOC: MRI 12:36
PROVIDERS: ATTEND Orthopaedic Surgery
DX: M19.011 Primary osteoarthritis, right shoulder (principal); M25.511 Pain in right shoulder; M25.411 Effusion, right shoulder; M25.711 Osteophyte, right shoulder; M75.51 Bursitis of right shoulder
CPT/HCPCS: 73218; 73221

== ENCOUNTER → 2019-12-06 | Outpatient (CLI) | payer MEDICARE ==
[2019-04-20 14:05] VITALS: BP 119/58
[~2019-12-06] MED LIST changes: +GADOTERATE 5 MMOL/10ML VIAL. IVP ONE; +IOHEXOL 300 MG/ML 50 ML VIAL. IJ ONE; +OXYC-325 PO
--- NOTE | 2019-12-06 15:42 | RAD ---
Examination: MRI right shoulder arthrogram History: Right shoulder pain, decreased range of motion COMPARISON: 11/26/2019 TECHNIQUE: Multiplanar, multisequence MR imaging of the right shoulder performed after arthrogram injection. FINDINGS: The long head of the biceps tendon within the bicipital groove. The attachment of the long head the biceps tendon to the superior labral anchor grossly appears intact. The visualized subscapularis tendon, supraspinatus, infraspinatus tendon grossly appears intact. The muscle bulk grossly appears unremarkable. There is increased T2 signal identified in the supraspinatus, infraspinatus tendons likely moderate tendinosis. The acromion is type II. Mild degenerative changes acromioclavicular joint. The visualized labrum grossly appears unremarkable. IMPRESSION: 1. Moderate increased T2 signal identified in the supraspinatus, infraspinatus tendons likely moderate tendinosis. Electronically signed by: Jose Trent MD (12/06/2019 3:38 PM) [id number]
--- NOTE | 2019-12-06 16:17 | RAD ---
Examination: SHOULDER ARTHROGRAM RIGHT History: RIGHT SHOULDER PAIN Comparison/Correlation: None Findings: Risks and benefits of right shoulder MRI arthrography were discussed with the patient and informed consent was obtained. Fluoroscopy utilized for 0.5 minutes. A total of 2 fluoroscopic images were acquired. Cleansing with Betadine and overlying the right shoulder was performed after initially determining site of needle placement with fluoroscopy. A sterile and draped was placed. 4.5 cc 1 percent lidocaine was administered at the anticipated site of needle placement. 22-gauge spinal needle was introduced into the right glenohumeral joint capsule. A total of 8 cc of diluted gadolinium solution was injected into the joint capsule (drawn from mixture consisting of 10 cc Isovue-300, 10 cc normal saline, and 0.1 cc Dotarem). Contrast distends the right glenohumeral joint capsule normally. There is no extravasation of contrast to suggest a full-thickness rotator cuff tear on the basis of fluoroscopic assessment. The patient tolerated the procedure well without immediate complications. Impression: Successful right glenohumeral joint capsule injection of diluted gadolinium contrast for MRI arthrographic purposes. Electronically signed by: Go Gomez MD (12/06/2019 4:14 PM) [id number]
== END | disposition home or self-care (01) ==
LOC: RAD 11:47
PROVIDERS: ATTEND Orthopaedic Surgery
DX: M19.011 Primary osteoarthritis, right shoulder (principal)
CPT/HCPCS: 73040; 73222

== ENCOUNTER → 2020-01-29 | Outpatient (CLI) | payer MEDICARE ==
[2019-04-20 14:05] VITALS: BP 119/58
[~2020-01-29] MED LIST changes: -GADOTERATE 5 MMOL/10ML VIAL. IVP ONE; -IOHEXOL 300 MG/ML 50 ML VIAL. IJ ONE
== END ==
LOC: LAB 09:19
PROVIDERS: ATTEND Internal Medicine Gastroenterology
DX: Z01.812 Encounter for preprocedural laboratory examination (principal); R19.7 Diarrhea, unspecified; Z20.828 Contact with and (suspected) exposure to other viral communicable diseases
CPT/HCPCS: U0003-CS

== ENCOUNTER → 2020-01-31 | Day surgery (SDC) | payer MEDICARE ==
[~2020-01-31] MED LIST changes: +IV RINGERS,LACTATED 1000ML 1,000 ML IV SCH; +LIDOCAINE 2% PF 5 ML VIAL. ONE; +PROPOFOL 10 MG/ML (20ML) VIAL. IV ONE
[2020-01-31 10:31] VITALS: BP 117/56
--- NOTE | 2020-02-05 10:07 | PATHOLOGY ---
[facility] Accession Number: [id number] . 01 Material submitted: . PART A: colon - ASCENDING COLON POLYP. Modifiers: ascending PART B: ileum - TERMINAL ILEUM BIOPSY PART C: colon - RIGHT COLON BIOPSY. Modifiers: right PART D: colon - LEFT COLON BIOPSY. Modifiers: left . 02 Diagnosis: A. Large bowel "ascending colon polyp", endoscopic biopsy: - Polypoid fragment of large bowel mucosa with prominent intramucosal lymphoid aggregate. - Negative for dysplasia and malignancy. . B. Small bowel "terminal ileum", endoscopic biopsy: - Ileal mucosa without significant pathologic alteration. . C. Large bowel "right colon", endoscopic biopsy: - Large bowel mucosa with focal areas of increased subepithelial collagen deposition and mildly increased intraepithelial lymphocytes, suggestive of collagenous colitis. - Negative for active inflammation, granulomatous inflammation, dysplasia, and malignancy. . D. Large bowel "left colon", endoscopic biopsy: - Large bowel mucosa with areas of increased subepithelial collagen deposition and mildly increased intraepithelial lymphocytes, suggestive of collagenous colitis. - Negative for active inflammation, granulomatous inflammation, dysplasia, and malignancy. . ([facility]; 02/05/2020) [facility] [place] [place] 02/05/2020 0908 Local . 02 Electronically signed: . Carter Gupta MD, Pathologist NPI- [id number] . 01 Gross description: . A. Received in formalin labeled "Keturah White, ascending colon polyp BX" is a 0.6 x 0.5 x 0.1 cm aggregate of mcgowan-brown soft tissue fragments. The specimen is submitted entirely in A1. . B. Received in formalin labeled "Keturah White, terminal ileum BX" is a 0.5 x 0.3 x 0.1 cm aggregate of mcgowan-brown soft tissue fragments. The specimen is submitted entirely in B1. . C. Received in formalin labeled "Keturah White, right colon BX" is a 1.1 x 0.3 x 0.1 cm aggregate of mcgowan-brown soft tissue fragments. The specimen is submitted entirely in C1. . D. Received in formalin labeled "Keturah White, left colon BX" is a 1.6 x 0.5 x 0.1 cm aggregate of mcgowan-brown soft tissue fragments. The specimen is submitted entirely in D1. ([facility] [place]; 01/31/2020) [facility] 01/31/2020 1803 Local . 02 Pathologist provided ICD-10: K63.9, R19.7, Z80.0 . 02 CPT . 214512, 073464, 301976, 136002 Specimen Comment: A courtesy copy of this report has been sent to [phone], [phone] Specimen Comment: [id number] Specimen Comment: Report sent to / DR CLEARY Performed at: 01 [facility] [address] [id number] MD Tommy De Guzman MD Phone: [phone] Performed at: 02 [facility] [address] [id number] MD Khari Cope MD Phone: [phone]
== END | disposition home or self-care (01) ==
LOC: ENDOS 08:25
PROVIDERS: ATTEND Internal Medicine Gastroenterology
DX: R19.7 Diarrhea, unspecified (principal); D12.2 Benign neoplasm of ascending colon; K64.0 First degree hemorrhoids; K21.9 Gastro-esophageal reflux disease without esophagitis; F41.9 Anxiety disorder, unspecified; F32.9 Major depressive disorder, single episode, unspecified; Z79.82 Long term (current) use of aspirin; Z79.899 Other long term (current) drug therapy; Z80.0 Family history of malignant neoplasm of digestive organs; Z98.890 Other specified postprocedural states
CPT/HCPCS: 45380; J2704; 88305

== ENCOUNTER → 2020-02-15 | Outpatient (CLI) | payer MEDICARE ==
[2020-01-31 10:31] VITALS: BP 117/56
[~2020-02-15] MED LIST changes: -IV RINGERS,LACTATED 1000ML 1,000 ML IV SCH; -LIDOCAINE 2% PF 5 ML VIAL. ONE; -PROPOFOL 10 MG/ML (20ML) VIAL. IV ONE
[2020-02-15 09:16] LABS: ALBUMIN 3.6 g/dL (3.4-5.0); ALBUMIN/GLOBULIN RATIO 0.8 (1.0-1.7); CALCIUM 9.6 mg/dL (8.5-10.1); CREATININE 1.3 mg/dL (0.6-1.0); GFR 40.2; POTASSIUM 4.2 mmol/L (3.5-5.1); TOTAL BILIRUBIN 0.5 mg/dL (0.2-1.0); TOTAL PROTEIN 7.9 g/dL (6.4-8.2)
[2020-02-15 09:27] LABS: FREE T4 1.14 ng/dL (0.76-1.46); THYROID STIM HORMONE (TSH) 1.839 uIU/mL (0.358-3.74)
== END | disposition home or self-care (01) ==
LOC: LAB 07:30
PROVIDERS: ATTEND Nurse Practitioner Family
DX: E03.9 Hypothyroidism, unspecified (principal); I10 Essential (primary) hypertension
CPT/HCPCS: 36415; 80053; 84439; 84443

== ENCOUNTER → 2020-05-05 | Outpatient (CLI) | payer MEDICARE ==
[2020-01-31 10:31] VITALS: BP 117/56
--- NOTE | 2020-05-12 09:55 | RAD ---
BILATERAL SCREENING MAMMOGRAM, 3-D History: Routine screening. Comparison: 04/08/2015, 04/15/2016, 04/20/2017, 04/25/2018, 05/01/2019. Technique: MLO and CC digital tomosynthesis (3D) images obtained. Radiologist reviewed these images on dedicated workstation. Findings: Breast Tissue Density A : The breasts are almost entirely fatty. There are no dominant masses, suspicious microcalcifications, or architectural distortion. IMPRESSION: No mammographic evidence of malignancy. Recommend routine screening. BI-RADS category 1: Negative. The images were reviewed with computer-aided detection. Patient information is entered into reminder system with a target due date for the next screening mammogram. Mammography is the most sensitive method for finding small breast cancers, but it does not detect them all and is not a substitute for careful clinical examination. A negative mammogram does not negate a clinically suspicious finding and should not result in delay in biopsying a clinically suspicious abnormality. "Our facility is accredited by the [employer] Mammography Program." Electronically signed by: Go Gomez MD (05/12/2020 9:52 AM) [email or web address]
== END ==
LOC: MAMMO 10:37
PROVIDERS: ATTEND Nurse Practitioner Family
DX: Z12.31 Encounter for screening mammogram for malignant neoplasm of breast (principal)
CPT/HCPCS: 77063; 77067

== ENCOUNTER → 2020-06-20 | Outpatient (CLI) | payer MEDICARE ==
[2020-01-31 10:31] VITALS: BP 117/56
--- NOTE | 2020-06-20 10:12 | RAD ---
PROCEDURE: XR FOOT_LEFT 3 VIEWS STUDY DATE: 06/20/2020 CLINICAL INDICATION / HISTORY: Reason: FOOT PAIN/3-5th metatarsal / Spl. Instructions: / History: . TECHNIQUE: AP, lateral and oblique views of the left foot. COMPARISON: Right foot x-rays 08/05/2017 and 09/04/2015 FINDINGS: Anatomic alignment. An acute distal third metatarsal shaft fracture is present with minimal displacement. Osteophytic spurring of the first metatarsal head and minimal associated joint space narrowing is als o seen, compatible with degenerative change. Small calcaneal spur and Achilles enthesophyte. Soft tissues show minimal calcification along the plantar fascia. No abnormal soft tissue gas or radi opaque foreign body. IMPRESSION: Acute distal diaphyseal fracture of the left third metatarsal shaft with minimal displacement. Discussed with the patient at her request in person at 10:08 AM on 06/20/2020. Electronically signed by: Karon Kc MD (06/20/2020 10:10 AM) [id number]
== END ==
LOC: RAD 08:44
PROVIDERS: ATTEND Nurse Practitioner Family
DX: S92.202A Fracture of unspecified tarsal bone(s) of left foot, initial encounter for closed fracture (principal); M77.32 Calcaneal spur, left foot; M76.62 Achilles tendinitis, left leg; X58.XXXA Exposure to other specified factors, initial encounter; Y93.89 Activity, other specified; Y92.89 Other specified places as the place of occurrence of the external cause; Y99.8 Other external cause status
CPT/HCPCS: 73630

== ENCOUNTER → 2020-07-22 | Outpatient (CLI) | payer MEDICARE ==
[2020-01-31 10:31] VITALS: BP 117/56
[~2020-07-22] MED LIST changes: -LISI-334 PO; +LISI20TA18 PO
--- NOTE | 2020-07-22 17:02 | CARD ---
MR#: [id number] Date of Study: 07/22/2020 Ordering Physician: FLAKITA BREWSTER, Referring Physician: FLAKITA BREWSTER, Tech: Dahlia Saleem, [facility] APPROVED REPORT EXAM: Two-dimensional and M-mode echocardiogram with Doppler and color Doppler. Other Information Quality : AverageHR: 75bpm INDICATION Dyspnea RISK FACTORS Hypertension Hyperlipidemia 2D DIMENSIONS RVDd3.7 (2.9-3.5cm)Left Atrium(2D)3.2 (1.6-4.0cm) IVSd1.2 (0.7-1.1cm)Aortic Root(2D)3.4 (2.0-3.7cm) LVDd4.8 (3.9-5.9cm)LVOT Diameter2.0 (1.8-2.4cm) PWd1.0 (0.7-1.1cm)LVDs3.0 (2.5-4.0cm) FS (%) 37.4 %SV71.4 ml Aortic Valve AoV Peak Isaias.130.6cm/sAoV VTI26.5cm AO Peak GR.6.8mmHgLVOT Peak Isaias.127.1cm/s LVOT VTI 26.41cmAO Mean GR.4mmHg JOEY (VMAX)2.85cu8BWC (VTI)3.16cm2 Mitral Valve MV E Hchzglmh99.1cm/sMV DECEL [id number] MV A Gxtyvenz93.3cm/sMV AQP78rm E/A Ratio0.8MVA (PHT)3.25cm2 TDI E/Lateral E'7.9E/Medial E'12.3 Pulmonary Valve PV Peak Vtigavpd15.7cm/sPV Peak Grad.3mmHg Tricuspid Valve TR P. Zhbvhmsc714dn/sRAP ANADRNFD1xiCa TR Peak Gr.53qbYrVNNL85wdKx Pulmonary Vein S1 Onvdofxu02.4cm/sD2 Xnenjsrp46.4cm/s PVa [id number] LEFT VENTRICLE The left ventricle is normal size. There is borderline to mild concentric left ventricular hypertroph y. The left ventricular systolic function is normal and the ejection fraction is within normal range. The Ejection Fraction is 55-60%. There is normal LV segmental wall motion. Transmitral Doppler flow pattern is Grade I-abnormal relaxation pattern. RIGHT VENTRICLE The right ventricle is normal size. There is normal right ventricular wall thickness. The right ventr icular systolic function is normal. ATRIA The left atrium size is normal. The right atrium size is normal. The interatrial septum is intact wit h no evidence for an atrial septal defect or patent foramen ovale as noted on 2-D or Doppler imaging. AORTIC VALVE The aortic valve is normal in structure and function. Doppler and Color Flow revealed no significant aortic regurgitation. There is no significant aortic valvular stenosis. Calculated aortic valve area is 3.16 cm2 with maximum pressure gradient of 8 mmHg and mean pressure gradient of 4 mmHg. MITRAL VALVE The mitral valve is normal in structure and function. There is no evidence of mitral valve prolapse. There is no mitral valve stenosis. Doppler and Color-flow revealed mild mitral regurgitation. TRICUSPID VALVE The tricuspid valve is normal in structure and function. Doppler and Color Flow revealed trace to mil d tricuspid regurgitation with an estimated PAP of 30 mmHg. There is no tricuspid valve stenosis. PULMONIC VALVE The pulmonic valve is not well visualized. Doppler and Color Flow revealed trace pulmonic valvular re gurgitation. GREAT VESSELS The aortic root is normal in size. The IVC is normal in size and collapses >50% with inspiration. PERICARDIAL EFFUSION There is no evidence of significant pericardial effusion. Critical Notification Critical Value: No <Conclusion> The left ventricle is normal size. The left ventricular systolic function is normal and the ejection fraction is within normal range. The Ejection Fraction is 55-60%. There is borderline to mild concentric left ventricular hypertrophy. Doppler and Color Flow revealed no significant aortic regurgitation. There is no significant aortic valvular stenosis. Doppler and Color-flow revealed mild mitral regurgitation. Doppler and Color Flow revealed trace to mild tricuspid regurgitation with an estimated PAP of 30 mmH g. Signed by : Jasmeet Gary MD Electronically Approved : 07/22/2020 17:01:47
== END ==
LOC: ECHO 08:25
PROVIDERS: ATTEND Internal Medicine Cardiovascular Disease
DX: I08.1 Rheumatic disorders of both mitral and tricuspid valves (principal); R06.09 Other forms of dyspnea
CPT/HCPCS: 93306

== ENCOUNTER → 2020-07-29 | Outpatient (CLI) | payer MEDICARE ==
[2020-01-31 10:31] VITALS: BP 117/56
--- NOTE | 2020-07-30 09:16 | SLEEP ---
DATE OF STUDY: 07/29/2020 HOME SLEEP STUDY REFERRING PHYSICIAN: Dr. Rodriguez PRIMARY CARE PHYSICIAN: Brandi Hinojosa APRN The patient is a 75-year-old who weighs 195 pounds with a BMI of 32.4. The patient's [place] score was 5. The patient underwent home sleep study performed at [facility]. Total recording time was 636 minutes. During the night study, the patient had 293 central apneas, 47 obstructive apneas, 12 mixed apneas and 103 hypopneas. The patient's AHI was 55.2 per hour. Nocturnal oximetry study revealed an average oxygen saturation of 90% with the lowest of 75%. 155 minutes were spent in oxygen saturation less than 90%. Mean heart rate was 69 beats per minute with a maximum of 94 beats per minute. IMPRESSION: 1. Severe sleep apnea at an AHI of 55 per hour. The patient's sleep apnea was combination of central and obstructive. 2. Nocturnal hypoxia secondary to sleep apnea. RECOMMENDATIONS: 1. The patient would benefit from in-lab CPAP titration study. The patient may require BiPAP. 2. Once the patient is optimally treated with positive pressure therapy, then follow up in 4-6 weeks to assess compliance and to document clinical improvement. 3. Weight loss is advised. 4. 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 5. Cautioned regarding driving until symptoms of sleep apnea resolve with above recommendations. PATRICIA CHAU MD DR: HOWARD/sommer JOB#: [id number] / [id number] FLAKITA Hill MD, SANDRA APRN
== END ==
LOC: RT 08:50
PROVIDERS: ATTEND Internal Medicine Cardiovascular Disease
DX: G47.33 Obstructive sleep apnea (adult) (pediatric) (principal); G47.34 Idiopathic sleep related nonobstructive alveolar hypoventilation; R53.83 Other fatigue
CPT/HCPCS: G0399

== ENCOUNTER → 2020-08-06 | Outpatient (CLI) | payer MEDICARE ==
[2020-01-31 10:31] VITALS: BP 117/56
--- NOTE | 2020-08-07 08:21 | RAD ---
Chest radiograph 08/06/2020 4:14 PM INDICATION: Shortness of air COMPARISON: 01/16/2018 TECHNIQUE: Frontal and lateral views of the chest are provided. FINDINGS: The cardiomediastinal silhouette is within normal limits. There are no pleural effusions. There is no pulmonary vascular congestion. There is no pneumothorax. The lungs are clear. No significant osseous abnormality is identified. IMPRESSION: No acute cardiopulmonary process. Electronically signed by: Montse Felder MD (08/07/2020 8:18 AM) [id number]
== END ==
LOC: RAD 15:38
PROVIDERS: ATTEND Internal Medicine Pulmonary Disease
DX: R06.02 Shortness of breath (principal)
CPT/HCPCS: 71046

== ENCOUNTER → 2020-08-11 | Outpatient (CLI) | payer MEDICARE ==
[2020-01-31 10:31] VITALS: BP 117/56
--- NOTE | 2020-08-12 11:16 | SLEEP ---
DATE OF STUDY: 08/11/2020 SLEEP STUDY REFERRING PHYSICIAN: Flakita Rodriguez MD. ____ Brandi Hinojosa APRN. The patient is a 75-year-old who weighs 195 pounds with a BMI of 32. The patient's Pelham score was 12. The patient had a home sleep study and was found to have severe JANET at an AHI of 55 per hour. The patient was referred for in-lab CPAP titration study. During the night study, the patient spent 444 minutes in bed and slept for 295 minutes with a sleep efficiency of 66%. Sleep latency was 20 minutes with a REM latency of 61 minutes. Sleep architecture showed normal stage 1 and stage 2 sleep, increased N3 sleep and normal REM sleep. EKG monitoring revealed normal sinus rhythm. No sustained arrhythmias observed. Average heart rate was 69 beats per minute. No PLMs observed. The patient was started on CPAP at 5 cm water and titrated up to 15 cm water. The patient was also switched to BiPAP at 19/15 towards the end, however, best results were seen at a CPAP pressure of 15 cm water. At that pressure, the patient slept for 156 minutes. The patient had supine as well as REM sleep. The patient's AHI was reduced to 3 per hour and oxygen saturation remained above 92%. The patient used small size full face mask. IMPRESSION: 1. Severe obstructive sleep apnea diagnosed by previous home sleep study. 2. No clinically significant periodic limb movements. 3. No significant nocturnal hypoxia while on therapeutic CPAP. RECOMMENDATIONS: 1. CPAP at 15 cm water completely eliminated the patient's sleep apnea and should be used on a nightly basis. 2. Follow up in 4-6 weeks to assess compliance with CPAP and to document clinical improvement. 3. Weight loss is advised. 4. 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 5. Cautioned regarding driving until symptoms of sleep apnea resolve with the use of CPAP. PATRICIA CHAU MD DR: HOWARD/sommer JOB#: [id number] / [id number] FLAKITA Hill MD, SANDRA APRN
== END ==
LOC: RT 19:10
PROVIDERS: ATTEND Internal Medicine Pulmonary Disease
DX: G47.33 Obstructive sleep apnea (adult) (pediatric) (principal)
CPT/HCPCS: 95811

== ENCOUNTER → 2020-12-16 | Outpatient (CLI) | payer MEDICARE ==
[2020-01-31 10:31] VITALS: BP 117/56
[~2020-12-16] MED LIST changes: -OMEP40CA45 PO; +OMEP40CA7 PO
--- NOTE | 2020-12-17 14:27 | RAD ---
MR#: [id number] Date of Study: 12/16/2020 Ordering Physician: FLAKITA BREWSTER, Referring Physician: FLAKITA BREWSTER, Tech: Dahlia Carrillo RDMS, RVT, RTR APPROVED REPORT Patient Location : OUT-PATIENT Indications Venous Insufficiency Greater Saphenous Veins (GSV) Significant venous relux noted in the RIGHT GSV at the following levels : Superficial Femoral Junctio n, Proximal Thigh, Mid Thigh, Distal Thigh, Proximal Calf Significant venous relux noted in the LEFT GSV at the following levels : Superficial Femoral Junction , Proximal Thigh, Mid Thigh, Distal Thigh Findings Grayscale images the bilateral saphenofemoral junctions are grossly unremarkable. The right great saphenous vein measures approximately 6 mm and has a maximum reflux time of 2 seconds . The left great saphenous vein measures approximately 6.3 mm and has a maximum reflux time of 1.5 seco nds. Bilateral lesser saphenous veins did not reveal any obvious evidence of reflux. Incidental note is made of a left-sided Palacios's cyst measuring approximately 6 cm x 3 cm x 1.7 cm. Critical Notification Critical Value: No <Conclusion> 1. Positive for reflux in the bilateral greater saphenous veins 2. Incidental note is made of a left-sided Palacios's cyst. Signed by : Lavon Tomlinson, Electronically Approved : 12/17/2020 14:27:16
== END ==
LOC: US 13:04
PROVIDERS: ATTEND Internal Medicine Cardiovascular Disease
DX: I87.2 Venous insufficiency (chronic) (peripheral) (principal); M71.22 Synovial cyst of popliteal space [Baker], left knee
CPT/HCPCS: 93970

== ENCOUNTER → 2021-03-30 | Outpatient (CLI) | payer MEDICARE ==
[2020-01-31 10:31] VITALS: BP 117/56
--- NOTE | 2021-03-30 16:48 | RAD ---
EXAMINATION: MRI LEFT KNEE WITHOUT IV CONTRAST CLINICAL HISTORY: Left knee pain concerning for medial meniscus tear TECHNIQUE: Multiplanar multisequential images obtained through the knee without intravenous contrast. COMPARISON: Left knee radiographs 12/22/2020 FINDINGS: Prominent motion artifact limits evaluation. MENISCI: Medial Meniscus: Tear in the posterior horn and body, suboptimally evaluated due to motion artifact Lateral Meniscus: No definitively visualized tear, however, there appears to be a tiny parameniscal c yst adjacent to the anterior horn so an occult tear is not excluded. LIGAMENTS: ACL: Intact PCL: Intact MCL: Intact LCL Complex: Intact CARTILAGE: Medial Femoral Condyle: Normal Medial Tibial Plateau: Moderate sized area(s) of high grade (greater than 50% thickness) partial thic kness cartilage loss and or fissuring Lateral Femoral Condyle: Normal Lateral Tibial Plateau: Normal Patella: Small area(s) of full thickness cartilage loss and or fissuring with subchondral marrow reac tive/cystic changes in the inferior lateral facet Trochlea: Normal TENDONS: Distal quadriceps and patellar tendons intact. Popliteus tendon intact. BONES AND MARROW: No evidence of acute fracture or suspicious marrow replacing process. MUSCLES: Muscle bulk and signal intensity within normal limits. JOINT FLUID AND SYNOVIUM: Moderate joint effusion. No synovitis. Large Palacios's cysts measuring up to 4.9 x 2.1 x 6.3 cm. IMPRESSION: Medial and questionable occult lateral meniscus tears as described, suboptimally evaluated due to pro minent motion artifact. Mild chondral wear as described. Large Palacios's cyst. Electronically signed by: Erickson Manning DO (03/30/2021 4:46 PM) [id number]
== END ==
LOC: MRI 10:36
PROVIDERS: ATTEND Orthopaedic Surgery
DX: M71.22 Synovial cyst of popliteal space [Baker], left knee (principal); M25.462 Effusion, left knee
CPT/HCPCS: 73721

== ENCOUNTER 2021-04-17 06:22 | Emergency (ER) | payer MEDICARE ==
[~2021-04-17] VITALS: Ht 165.1 cm; Wt 84.0 kg
[~2021-04-17 06:22] MED LIST changes: -CITA40TA5 PO; +CITA40TA6 PO; +DICY20TA PO; -DICY20TA3 PO
--- NOTE | 2021-04-17 07:38 | PHYS DOC ---
Past Medical History Past Medical History: GERD Past Surgical History: Knee Replacement, Tonsillectomy Smoking Status: Former Smoker Alcohol Use: None Drug Use: None General Adult EDM: Chief Complaint: KNEE SWELLING HPI: HPI: Patient is a 76 year old female who presents with left knee pain. She has had this knee pain for quite some time. She has seen orthopedics, Dr. Ingram. She had an MRI of her knee earlier this week, which showed a lateral meniscus tear. 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 This week, she had a steroid injection by Dr. Ingram. She reports that last night she could not get comfortable secondary to continued pain. She denies any lower extremity swelling or calf pain. She denies any redness, denies fevers or chills. She denies any acute trauma or injury. She reports that she was wondering if Dr. Ingram would come down here to the ER to see her, possibly provide her another steroid injection or order another MRI. She reports that she was in too much pain to go to work today. 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 She denies any other complaints at this time. Review of Systems: Review of Systems: Constitutional: Denies fever or chills. Respiratory: Denies cough or shortness of breath. [] Cardiovascular: Denies chest pain or edema. [] Musculoskeletal: Left knee pain, most prominently medial left knee pain Integument: Denies rash, denies joint redness or warmth Neurologic: Denies headache, focal weakness or sensory changes. [] Psychiatric: Denies depression or anxiety. [] Heart Score: C/O Chest Pain: No Risk Factors: Risk Factors: DM, Current or recent (<one month) smoker, HTN, HLP, family history of CAD, obesity. Risk Scores: Score 0 - 3: 2.5% MACE over next 6 weeks - Discharge Home Score 4 - 6: 20.3% MACE over next 6 weeks - Admit for Clinical Observation Score 7 - 10: 72.7% MACE over next 6 weeks - Early Invasive Strategies Allergies: Allergies: Allergies Coded Allergies Type Severity Reaction Last Updated Verified No Known Drug Allergies 01/31/20 No Physical Exam: PE: Constitutional: Well developed, well nourished, no acute distress, non-toxic appearance. [] HENT: Normocephalic, atraumatic Cardiovascular: She is well-perfused appearing. +2 dorsalis pedis and posterior tibial pulse, cap refill brisk Lungs & Thorax: Respirations are nonlabored Skin: Warm, dry, no erythema, no rash. There is no warmth or erythema of the left knee or left lower extremity Extremities: No deformity noted. No palpable joint effusion or soft tissue swelling noted of the left knee. No warmth or erythema of the left knee. No calf tenderness. No ligamentous laxity appreciated. No crepitus or palpable palpable step-off or clicking appreciated. She is able to fully flex and extend her knee passively and actively. No pain with range of motion of her left hip. No tenderness of the left lower leg, left ankle or foot. Neurologic: Alert and oriented X 3, normal motor function, normal sensory function, no focal deficits noted. [] Psychologic: Affect is somewhat flat, she is cooperative. EKG: EKG: [] Radiology/Procedures: Radiology/Procedures: [] Course & Med Decision Making: Course & Med Decision Making I have discussed the findings, differential diagnosis and plan of care with her. There is no indication for MRI. I kindly explained that MRIs of the knee are not routinely, if ever, done in the emergency department. She just had a joint injection this week, as well as an MRI this week. There would be no indication for emergent orthopedic consultation in the emergency permit today. I did offer to give her a dose of Toradol here, no sedating medications are offered since she drove here. She did accept this. She is comfortable with a prescription for [place] to take at home for pain. She has a copper knee sleeve that she is using for compression, which she feels is working well enough. I told her to reach out to Dr. Ingram's office to discuss this further. She expresses frustration because he is apparently leaving at the end of this month, so I did provide her with other orthopedic surgery follow-up information, should she choose to utilize this. No current indication for any emergent imaging, invasive exams at this time. Return precautions are given Dragon Disclaimer: Dragon Disclaimer: This electronic medical record was generated, in whole or in part, using a voice recognition dictation system. Departure Departure Impression: Primary Impression: Left knee pain Disposition: HOME / SELF CARE / HOMELESS Condition: STABLE Referrals: ELÍAS CLEARY APRN (PCP) Patient Instructions: Knee - Cartilage (Meniscus) Injury Additional Instructions: Use the medication as needed/as directed. Contact Dr. Ingram's office to discuss your MRI results and further treatment further. You may also wish to consult with another orthopedist, such Dr. Lund, once Dr. Ingram leaves. Return for severe joint redness, fever 100.5 or higher, more severe pain, acute injury or trauma, severe calf pain, severe lower extremity swelling or any other concerns. Ice, elevate and compress your knee to help with pain as well. Scripts Hydrocodone Bit/Acetaminophen (HYDROCODONE-APAP 5-325 ) 1 Tab Tablet 1 TAB PO PRN Q6HRS PRN for PAIN, #20 TAB 0 Refills Prov: LAITH GRAFF DO 04/17/21 LAITH GRAFF DO Apr 17, 2021 07:38
[2021-04-17] MEDS ORDERED: HYDR-2761 PO (08:04)
[2021-04-17] MEDS ORDERED: KETOROLAC 30 MG/ML VIAL. IM ONE (08:15)
[2021-04-17 08:49] VITALS: BP 198/88
== END 2021-04-17 08:54 | disposition home or self-care (01) ==
LOC: ER 06:22
DX: M25.562 Pain in left knee (principal); K21.9 Gastro-esophageal reflux disease without esophagitis
CPT/HCPCS: 96372; 99284; J1885

== ENCOUNTER → 2021-05-19 | Outpatient (CLI) | payer MEDICARE ==
[~2021-05-19] MED LIST changes: +HYDR-2761 PO
--- NOTE | 2021-05-19 17:13 | RAD ---
BILATERAL DIGITAL SCREENING 2-D AND 3-D MAMMOGRAM INDICATION: Routine screening. COMPARISON: May 05, 2020 May 01, 2019 April 25, 2018 April 18, 2017 Interpretation was made using CAD. FINDINGS: Breast Density: The breasts are almost entirely fatty. RIGHT BREAST: No suspicious masses, calcifications or areas of architectural distortion are seen. LEFT BREAST: No suspicious masses, calcifications or areas of architectural distortion are seen. IMPRESSION: 1. No imaging evidence of malignancy. ASSESSMENT: BI-RADS 1. Negative. RECOMMENDATION: Routine annual screening mammogram. The facility will notify the patient of the results via mail. Patient information will be entered int o the mammography reminder system with a target recall date for the next mammogram. A reminder letter will be generated by the facility. Electronically signed by: Dina Cool MD (05/19/2021 5:11 PM) [id number]
== END ==
LOC: MAMMO 08:36
PROVIDERS: ATTEND Nurse Practitioner Family
DX: Z12.31 Encounter for screening mammogram for malignant neoplasm of breast (principal)
CPT/HCPCS: 77063; 77067

== ENCOUNTER → 2021-10-15 | Outpatient (CLI) | payer MEDICARE ==
--- NOTE | 2021-10-15 10:16 | CARD ---
MR#: [id number] Date of Study: 10/15/2021 Ordering Physician: FLAKITA BREWSTER, Referring Physician: Bryon PERKINS: [facility] APPROVED REPORT EXAM: Two-dimensional and M-mode echocardiogram with Doppler and color Doppler. Other Information Quality : AverageHR: 61bpm Rhythm : NSR INDICATION Hypertension/HCVD RISK FACTORS Hypertension 2D DIMENSIONS Left Atrium(2D)3.4 (1.6-4.0cm)IVSd1.2 (0.7-1.1cm) Aortic Root(2D)3.1 (2.0-3.7cm)LVDd4.7 (3.9-5.9cm) LVOT Diameter1.9 (1.8-2.4cm)PWd0.8 (0.7-1.1cm) LVDs2.5 (2.5-4.0cm)FS (%) 45.5 % SV77.3 mlLVEF(%)76.9 (>50%) Aortic Valve AoV Peak Isaias.106.1cm/Tomi Peak GR.4.7mmHg LVOT Peak Isaias.92.6cm/sAVA (VMAX)2.54cm2 Mitral Valve MV E Faryqeko11.7cm/sMV DECEL [id number] MV A Qqdhfosa82.1cm/sE/A Ratio0.8 Tricuspid Valve TR P. [id number]/sRAP [id number] TR Peak Gr.50wkYsQUOK91wmNz Pulmonary Vein S1 Evpjoibg16.0cm/sD2 Dewmdsam99.5cm/s PVa [id number] LEFT VENTRICLE The left ventricle is normal size. There is normal left ventricular wall thickness. The left ventricu lar systolic function is normal and the ejection fraction is within normal range. EF 65% There is nor mal LV segmental wall motion. Tissue Doppler imaging reveals mild left ventricular diastolic dysfunct ion. No left ventricle thrombus noted on this study. There is no ventricular septal defect visualized . There is no left ventricular aneurysm. There is no mass noted in the left ventricle. RIGHT VENTRICLE The right ventricle is normal size. There is normal right ventricular wall thickness. The right ventr icular systolic function is normal. ATRIA The left atrium is mildly dilated. The right atrium size is normal. The interatrial septum is intact with no evidence for an atrial septal defect or patent foramen ovale as noted on 2-D or Doppler imagi ng. AORTIC VALVE The aortic valve is normal in structure and function. No aortic regurgitation is present. There is no aortic valvular stenosis. There is no aortic valvular vegetation. MITRAL VALVE The mitral valve is normal in structure and function. There is no evidence of mitral valve prolapse. There is no mitral valve stenosis. Doppler and Color Flow revealed mild mitral regurgitation. TRICUSPID VALVE The tricuspid valve is normal in structure and function. Doppler and Color Flow revealed mild tricusp id regurgitation. The pulmonary artery systolic pressure is estimated at less than 30 mmHg. There is no tricuspid valve prolapse or vegetation. There is no tricuspid valve stenosis. PULMONIC VALVE There is no pulmonic valvular regurgitation. There is no pulmonic valvular stenosis. GREAT VESSELS The aortic root is normal in size. The ascending aorta is normal in size. The IVC is normal in size a nd collapses >50% with inspiration. PERICARDIAL EFFUSION There is no pleural effusion. There is no evidence of significant pericardial effusion. Critical Notification Critical Value: No <Conclusion> The left ventricular systolic function is normal and the ejection fraction is within normal range. EF 65% There is normal LV segmental wall motion. Doppler and Color Flow revealed mild tricuspid regurgitation. The pulmonary artery systolic pressure is estimated at less than 30 mmHg. Signed by : Lavon Tomlinson, Electronically Approved : 10/15/2021 10:16:18
== END ==
LOC: ECHO 07:48
PROVIDERS: ATTEND Internal Medicine Cardiovascular Disease
DX: I08.1 Rheumatic disorders of both mitral and tricuspid valves (principal); I10 Essential (primary) hypertension
CPT/HCPCS: 93306; C8929